=== PATIENT | male | born 1950 | race Caucasian/White ===

== ENCOUNTER 2016-07-05 19:23 | Emergency (ER) | payer OTHER, MEDICAID ==
[~2016-07-05] VITALS: Ht 165.1 cm; Wt 72.0 kg
[~2016-07-05 19:23] MED LIST: ASPI-110 PO; CINN500T PO; FURO1TAB62 PO; RANI150T PO
[2016-07-05 19:25] VITALS: BP 154/84; PULSE 75; RESP 16; TEMP 97.8; O2SAT 96
[2016-07-05] MEDS ORDERED: SODIUM CHLOR 0.9% 1000 ML INJ 1,000 ML IV SCH (21:35)
[2016-07-05 21:36] LABS: MEAN CORPUSCULAR HGB CONC 36.8 % (32.0-36.0)
[2016-07-05] MEDS ORDERED: CLOP75TA PO (21:38)
[2016-07-05] MEDS ORDERED: GLIP5TAB8 PO (21:38)
[2016-07-05] MEDS ORDERED: GEMF600 PO (21:38)
--- NOTE | 2016-07-05 21:41 | PD ---
HPI Chief Complaint: GI Complaint Time Seen by Provider: 21:28 Travel History International Travel<30 days: No Contact w/Intl Traveler<30days: No Traveled to known affect area: No History of Present Illness HPI Patient is a 65-year-old male with history of coronary artery disease, diabetes , GERD who presents to emergency room with complaints of abdominal pain. RepOrts that he has been having intermittent abdominal pain for the past few days, patient reports that today, pain was worse. Patient reports that he has increased pain to his right lower quadrant, reports that he has not been able to eat or drink anything secondary to pain. Patient denies any fevers or chills , reports that he did have a normal bowel today. Patient denies any chest pain or shortness of breath though he does admit to having 3 coronary artery stents placed by Dr.Ratten Espinal 3 weeks ago. PFSH Past Medical History Hx Anticoagulant Therapy: Yes (PLAVIX) Arthritis: No Asthma: No Autoimmune Disease: No Anxiety: No Depression: No Heart Rhythm Problems: No Cancer: No Cardiac Catheterization: Yes (JAN 2010) Cardiovascular Problems: Yes (STENT x3/TN) High Cholesterol: Yes Chemotherapy: No Chest Pain: Yes Congestive Heart Failure: Yes COPD: Yes Cerebrovascular Accident: Yes (CVAx3) Coronary Artery Disease: Yes Diabetes: Yes (GLIPIZIDE) Patient Takes Glucophage: Yes Diminished Hearing: No Endocrine: Yes Gastrointestinal Disorders: Yes (EGD AND COLONOSCOPY) GERD: Yes Genitourinary: No Headaches: Yes Hiatal Hernia: No Immune Disorder: No Kidney Stones: No Musculoskeletal: No Neurologic: No Psychiatric: No Reproductive: No Respiratory: Yes (COPD, BRONCHITIS) Immunizations Current: Yes Migraines: No Myocardial Infarction: Yes (2009) Pneumonia: Yes Radiation Therapy: No Renal Failure: No Seizures: No Sleep Apnea: No Thyroid Disease: No Ulcer: Yes (GASTRIC) Tetanus Vaccination: < 5 Years Influenza Vaccination: No Past Surgical History Abdominal Surgery: No AICD: No Arteriovenous Shunt: No Cardiac Surgery: Yes (HEART STENT 2009) Coronary Stent: Yes (X1) Ear Surgery: No Endocrine Surgery: No Eye Surgery: No Genitourinary Surgery: No Gynecologic Surgery: No Hysterectomy: No Insulin Pump: No Oral Surgery: Yes Pacemaker: No Thoracic Surgery: No Other Surgery: Yes Social History Alcohol Use: No Tobacco Use: No (QUIT Mar, USES E-CIG) Substance Use: No Allergies-Medications (Allergen,Severity, Reaction): Coded Allergies: Codeine (Verified Allergy, Severe, ITCHING/SWELLING, 07/05/16) Vicodin (Verified Allergy, Severe, ITCHING/SWELLING, 07/05/16) Reported Meds & Prescriptions Reported Meds & Active Scripts Active Protonix (Pantoprazole Sodium) 40 Mg Tab 40 Mg PO DAILY Zofran Odt (Ondansetron Odt) 4 Mg Tab 4 Mg SL Q6HR PRN Reported Lopid (Gemfibrozil) 600 Mg Tab 600 Mg PO BIDAC Take 30 minutes prior to breakfast and dinner Glipizide 5 Mg Tab 5 Mg PO DAILY Take 30 minutes before a meal Clopidogrel (Clopidogrel Bisulfate) 75 Mg Tab 75 Mg PO DAILY Ranitidine (Ranitidine HCl) 150 Mg Tab 150 Mg PO DAILY PRN Aspirin 81 (Aspirin) 81 Mg Tabdr 81 Mg PO HS Review of Systems General / Constitutional: No: Fever Eyes: No: Visual changes HENT: No: Headaches Cardiovascular: No: Chest Pain or Discomfort, Palpitations, Irregular Rhythm Respiratory: No: Shortness of Breath Gastrointestinal: Positive: Nausea, Vomiting, Abdominal Pain Genitourinary: No: Dysuria Musculoskeletal: No: Pain Skin: No Rash Neurologic: No: Weakness Psychiatric: No: Depression Endocrine: No: Polydipsia Hematologic/Lymphatic: No: Easy Bruising Physical Exam Narrative GENERAL: Mild distress SKIN: Warm and dry. HEAD: Atraumatic. Normocephalic. EYES: Pupils equal and round. No scleral icterus. No injection or drainage. ENT: No nasal bleeding or discharge. Mucous membranes pink and moist. NECK: Trachea midline. No JVD. CARDIOVASCULAR: Regular rate and rhythm. No murmur appreciated. RESPIRATORY: No accessory muscle use. Clear to auscultation. Breath sounds equal bilaterally. GASTROINTESTINAL: Abdomen soft, patient with increased right lower quadrant abdominal pain, patient with guarding on exam MUSCULOSKELETAL: No obvious deformities. No clubbing. No cyanosis. No edema. NEUROLOGICAL: Awake and alert. No obvious cranial nerve deficits. Motor grossly within normal limits. Normal speech. PSYCHIATRIC: Appropriate mood and affect; insight and judgment normal. Data Data Last Documented VS Vital Signs Date Time Temp Pulse Resp B/P Pulse Ox O2 Delivery O2 Flow Rate FiO2 07/06/16 00:00 16 07/05/16 22:10 62 139/87 96 Room Air 07/05/16 19:25 97.8 Orders Electrocardiogram (07/05/16 ) Complete Blood Count With Diff (07/05/16 21:35) Comprehensive Metabolic Panel (07/05/16 21:35) Lipase (07/05/16 21:35) Prothrombin Time / Inr (Pt) (07/05/16 21:35) Act Partial Throm Time (Ptt) (07/05/16 21:35) Urinalysis - C+S If Indicated (07/05/16 21:35) Iv Access Insert/Monitor (07/05/16 21:35) Ecg Monitoring (07/05/16 21:35) Oximetry (07/05/16 21:35) NPO (07/05/16 21:35) Morphine Inj (Morphine Inj) (07/05/16 21:45) Ondansetron Inj (Zofran Inj) (07/05/16 21:45) Sodium Chlor 0.9% 1000 Ml Inj (Ns 1000 M (07/05/16 21:35) Sodium Chloride 0.9% Flush (Ns Flush) (07/05/16 21:45) Chest, Single Ap (07/05/16 21:35) Famotidine Inj (Pepcid Inj) (07/05/16 21:45) Oral Contrast - Adult (07/05/16 21:43) Diatrizoate Liq ( Gastroadonis Liq) (07/05/16 22:13) Ct Abd/Pel W Iv Contrast(Rout) (07/06/16 ) Iohexol 350 Inj (Omnipaque 350 Inj) (07/05/16 23:59) Sodium Chlor 0.9% 1000 Ml Inj (Ns 1000 M (07/06/16 00:45) Insulin Human Regular Inj (Novolin R Inj (07/06/16 00:45) Bedside Glucose NESTOR.AC&HS (07/06/16 01:19) Labs Laboratory Tests Test 07/05/16 07/05/16 07/06/16 21:45 22:20 00:50 White Blood Count 6.3 TH/MM3 Red Blood Count 5.54 MIL/MM3 Hemoglobin 17.7 GM/DL Hematocrit 48.2 % Mean Corpuscular Volume 87.0 FL Mean Corpuscular Hemoglobin 32.0 PG Mean Corpuscular Hemoglobin 36.8 % Concent Red Cell Distribution Width 13.5 % Platelet Count 246 TH/MM3 Mean Platelet Volume 8.1 FL Neutrophils (%) (Auto) 49.6 % Lymphocytes (%) (Auto) 35.0 % Monocytes (%) (Auto) 8.6 % Eosinophils (%) (Auto) 4.5 % Basophils (%) (Auto) 2.3 % Neutrophils # (Auto) 3.1 TH/MM3 Lymphocytes # (Auto) 2.2 TH/MM3 Monocytes # (Auto) 0.5 TH/MM3 Eosinophils # (Auto) 0.3 TH/MM3 Basophils # (Auto) 0.1 TH/MM3 CBC Comment AUTO DIFF Differential Comment AUTO DIFF CONFIRMED Platelet Estimate NORMAL Platelet Morphology Comment NORMAL Prothrombin Time 10.2 SEC Prothromb Time International 0.9 RATIO Ratio Activated Partial 27.2 SEC Thromboplast Time Sodium Level 132 MEQ/L Potassium Level 4.9 MEQ/L Chloride Level 99 MEQ/L Carbon Dioxide Level 22.1 MEQ/L Anion Gap 11 MEQ/L Blood Urea Nitrogen 16 MG/DL Creatinine 0.86 MG/DL Estimat Glomerular Filtration 89 ML/MIN Rate Random Glucose 352 MG/DL Calcium Level 7.7 MG/DL Total Bilirubin 0.5 MG/DL Aspartate Amino Transf 60 U/L (AST/SGOT) Alanine Aminotransferase 43 U/L (ALT/SGPT) Alkaline Phosphatase 76 U/L Total Protein 7.0 GM/DL Albumin 3.4 GM/DL Lipase 227 U/L Urine Color LIGHT-YELLOW Urine Turbidity CLEAR Urine pH 5.0 Urine Specific [place] 1.030 Urine Protein NEG mg/dL Urine Glucose (UA) 1000 mg/dL Urine Ketones 40 mg/dL Urine Occult Blood NEG Urine Nitrite NEG Urine Bilirubin NEG Urine Urobilinogen LESS THAN 2.0 MG/DL Urine Leukocyte Esterase NEG Urine RBC LESS THAN 1 /hpf Urine WBC 1 /hpf Urine Mucus FEW /lpf Microscopic Urinalysis Comment CULT NOT INDICATED MDM Medical Decision Making Medical Screen Exam Complete: Yes Emergency Medical Condition: Yes Interpretation(s) EKG at 2243: NSR at 60bpm, qt/qtc: 398/399, no acute st or t wave changes Vital Signs Date Time Temp Pulse Resp B/P Pulse Ox O2 Delivery O2 Flow Rate FiO2 07/05/16 21:32 18 07/05/16 19:25 97.8 75 16 154/84 96 Room Air Laboratory Tests Test 07/05/16 07/05/16 21:45 22:20 White Blood Count 6.3 TH/MM3 (4.0-11.0) Red Blood Count 5.54 MIL/MM3 (4.50-5.90) Hemoglobin 17.7 GM/DL (13.0-17.0) Hematocrit 48.2 % (39.0-51.0) Mean Corpuscular Volume 87.0 FL (80.0-100.0) Mean Corpuscular Hemoglobin 32.0 PG (27.0-34.0) Mean Corpuscular Hemoglobin 36.8 % Concent (32.0-36.0) Red Cell Distribution Width 13.5 % (11.6-17.2) Platelet Count 246 TH/MM3 (150-450) Mean Platelet Volume 8.1 FL (7.0-11.0) Neutrophils (%) (Auto) 49.6 % (16.0-70.0) Lymphocytes (%) (Auto) 35.0 % (9.0-44.0) Monocytes (%) (Auto) 8.6 % (0.0-8.0) Eosinophils (%) (Auto) 4.5 % (0.0-4.0) Basophils (%) (Auto) 2.3 % (0.0-2.0) Neutrophils # (Auto) 3.1 TH/MM3 (1.8-7.7) Lymphocytes # (Auto) 2.2 TH/MM3 (1.0-4.8) Monocytes # (Auto) 0.5 TH/MM3 (0-0.9) Eosinophils # (Auto) 0.3 TH/MM3 (0-0.4) Basophils # (Auto) 0.1 TH/MM3 (0-0.2) CBC Comment AUTO DIFF Differential Comment AUTO DIFF CONFIRMED Platelet Estimate NORMAL (NORMAL) Platelet Morphology Comment NORMAL (NORMAL) Prothrombin Time 10.2 SEC (9.8-11.6) Prothromb Time International 0.9 RATIO Ratio Activated Partial 27.2 SEC Thromboplast Time (24.3-30.1) Sodium Level 132 MEQ/L (136-145) Potassium Level 4.9 MEQ/L (3.5-5.1) Chloride Level 99 MEQ/L (98-107) Carbon Dioxide Level 22.1 MEQ/L (21.0-32.0) Anion Gap 11 MEQ/L (5-15) Blood Urea Nitrogen 16 MG/DL (7-18) Creatinine 0.86 MG/DL (0.60-1.30) Estimat Glomerular Filtration 89 ML/MIN (>89) Rate Random Glucose 352 MG/DL (74-106) Calcium Level 7.7 MG/DL (8.5-10.1) Total Bilirubin 0.5 MG/DL (0.2-1.0) Aspartate Amino Transf 60 U/L (15-37) (AST/SGOT) Alanine Aminotransferase 43 U/L (12-78) (ALT/SGPT) Alkaline Phosphatase 76 U/L (45-117) Total Protein 7.0 GM/DL (6.4-8.2) Albumin 3.4 GM/DL (3.4-5.0) Lipase 227 U/L (73-393) Last Impressions Chest X-Ray 07/05/162134 Signed Impressions: Service Date/Time: Tuesday, July 05, 2016 21:40 - CONCLUSION: No acute cardiopulmonary disease. Brandee Umana MD Differential Diagnosis Acute cholecystitis, GERD, gastritis, acute appendicitis, electrolyte abnormality, ACS, arrythmia Narrative Course Patient is a 65-year-old male who presents to emergency room with complaints of abdominal pain. Patient reports the pain has been intermittent for the past few days, reports severe pain starting 1 PM today. Patient reports that he has increased pain to his right lower quadrant, reports that he does have an appendix and has never had any abdominal surgeries in the past. Vital Signs Date Time Temp Pulse Resp B/P Pulse Ox O2 Delivery O2 Flow Rate FiO2 07/05/16 21:32 18 07/05/16 19:25 97.8 75 16 154/84 96 Room Air Vital signs stable at this time. Plan to obtain labs as well as CAT scan of abdomen and pelvis to evaluate for acute appendicitis. X-ray of chest ordered to rule out free air. EKG ordered as patient did have a recent cardiac stent placed 3 weeks ago - rule out ACS wbc: 6.3 Hemoglobin 17.7 Hematocrit 48.2 Platelets 246 Sodium 132 Chloride 99 Potassium 4.9 BUN 16 Creatinine 0.86 Glucose 352 AST 60 ALT 43 T bili 0.5 Alkaline phosphatase 76 Lipase 227 Last Impressions Chest X-Ray 07/05/162134 Signed Impressions: Service Date/Time: Tuesday, July 05, 2016 21:40 - CONCLUSION: No acute cardiopulmonary disease. Brandee Umana MD CT abdomen pelvis: fatty liver, atherosclerosis, right upper pole renal cyst, no acute findings UA + glucose in urine Patient reevaluated, patient reports that he is doing much better. BS 220 Signs and symptoms of when to return to the emergency room was reviewed with patient and his in detail. Understands need for follow-up within 8-12 hours, he will return to emergency room should he develop worsening symptoms or progression of symptoms Diagnosis Primary Impression: Abdominal pain Qualified Code: R10.31 - Right lower quadrant abdominal pain Additional Impressions: Hyperglycemia GERD (gastroesophageal reflux disease) Patient Instructions: General Instructions Additional Instructions: Please provide patient with a copy of his lab work and studies at discharge Please follow up with your primary care doctor Return to ER as needed Return to ER immediately if you develop fevers or chills or return of symptoms Please bring your lab work as well as your studies to doctor's office for earliest follow-up Please call your observer gravity prospecting for earliest follow-up as you will need further testing including but not limited to EGD Scripts Pantoprazole (Protonix)40 Mg Tab40 Mg PO DAILY #30 TAB Ref 0 Prov:Celi Mendez DO 07/06/16 Ondansetron Odt (Zofran Odt)4 Mg Tab4 Mg SL Q6HR PRN (Nausea/Vomiting) #30 TAB Ref 0 Prov:Celi Mendez DO 07/06/16 Disposition: 01 DISCHARGE HOME Condition: Stable Celi Mendez DO Jul 05, 2016 21:41
[2016-07-05] MEDS ORDERED: SODIUM CHLORIDE 0.9% FLUSH 10 ML FLUSH IV FLUSH PRN (21:45)
[2016-07-05] MEDS ORDERED: ONDANSETRON HCL 4 MG/2 ML VIAL IVP ONE (21:45)
[2016-07-05] MEDS ORDERED: FAMOTIDINE 20 MG/2 ML VIAL IV PUSH ONE (21:45)
[2016-07-05] MEDS ORDERED: MORPHINE SULFATE 4 MG/ML INJ IV PUSH ONE (21:45)
[2016-07-05 22:02] LABS: AUTOMATED NEUTROPHIL # 3.1 TH/MM3 (1.8-7.7); BASOPHIL # 0.1 TH/MM3 (0-0.2); BASOPHIL % 2.3 % (0.0-2.0); EOSINOPHIL # 0.3 TH/MM3 (0-0.4); EOSINOPHIL % 4.5 % (0.0-4.0); HEMATOCRIT 48.2 % (39.0-51.0); LYMPHOCYTE # 2.2 TH/MM3 (1.0-4.8); MONO % 8.6 % (0.0-8.0); NEUT % 49.6 % (16.0-70.0); PLATELET COUNT 246 TH/MM3 (150-450); RED BLOOD COUNT 5.54 MIL/MM3 (4.50-5.90); RED CELL DISTRIBUTION WIDTH 13.5 % (11.6-17.2); WHITE BLOOD COUNT 6.3 TH/MM3 (4.0-11.0)
[2016-07-05 22:04] LABS: HEMO FLAGS AUTO DIFF
[2016-07-05 22:09] VITALS: RESP 18; O2SAT 96
[2016-07-05 22:10] VITALS: BP 139/87; PULSE 62; RESP 18; O2SAT 96
[2016-07-05] MEDS ORDERED: DIATRIZOATE MEGLUM/DIATRIZOATE SOD 9 ML CUP ONE (22:13)
--- NOTE | 2016-07-05 22:13 | RADRPT ---
EXAM DATE/TIME: 07/05/2016 21:40 [facility] COMPARISON: CHEST SINGLE AP, April 02, 2016, 21:59. INDICATIONS : Epigastric pain. MEDICAL HISTORY : Diabetes mellitus type II. SURGICAL HISTORY : None. ENCOUNTER: Initial ACUITY: 2 days PAIN SCORE: 10/10 LOCATION: upper quadrant abdomen FINDINGS: The lungs are clear without infiltrate, nodule, or mass. There is no appreciable pleural effusion fo r technique. Heart and mediastinum are unremarkable. CONCLUSION: No acute cardiopulmonary disease. Brandee Umana MD on July 05, 2016 at 22:11 Board Certified Radiologist. This report was verified electronically.
[2016-07-05 22:41] LABS: PLATELET ESTIMATE SMEAR NORMAL (NORMAL); PLATELET MORPHOLOGY NORMAL (NORMAL); SCAN/DIFF AUTO DIFF CONFIRMED
[2016-07-05 22:43] LABS: APTT (PATIENT) 27.2 SEC (24.3-30.1); INTERNATIONAL NORMALIZED RATIO 0.9 RATIO; PROTHROMBIN TIME - PATIENT 10.2 SEC (9.8-11.6)
[2016-07-05 23:18] LABS: ALKALINE PHOSPHATASE 76 U/L (45-117); ANION GAP 11 MEQ/L (5-15); BICARBONATE 22.1 MEQ/L (21.0-32.0); CHLORIDE 99 MEQ/L (98-107); GLOMERULAR FILTRATION RATE 89 ML/MIN (>89); SODIUM (NA) 132 MEQ/L (136-145); TOTAL BILIRUBIN ADULT 0.5 MG/DL (0.2-1.0)
[2016-07-05 23:24] LABS: ALT (GPT) 43 U/L (12-78); AST (GOT) 60 U/L (15-37); BLOOD UREA NITROGEN 16 MG/DL (7-18); POTASSIUM 4.9 MEQ/L (3.5-5.1)
[2016-07-05] MEDS ORDERED: IOHEXOL 350 MG/ML 10 ML VIAL (for RAD DIAG) IV ONE (23:59)
[2016-07-06] VITALS: RESP 16
--- NOTE | 2016-07-06 00:37 | RADRPT ---
EXAM DATE/TIME: 07/06/2016 00:16 [facility] COMPARISON: CT ABDOMEN & PELVIS W CONTRAST, November 26, 2015, 20:58. INDICATIONS : Abdomen pain. IV CONTRAST: 100 cc Omnipaque 350 (iohexol) IV ORAL CONTRAST: Prescribed oral contrast ingested. RADIATION DOSE: 5.14 CTDIvol (mGy) MEDICAL HISTORY : Cardiovascular disease. SURGICAL HISTORY : Cardiac stents. ENCOUNTER: Initial ACUITY: 1 day PAIN SCALE: 4/10 LOCATION: Bilateral abdomen. TECHNIQUE: Volumetric scanning of the abdomen and pelvis was performed. Using automated exposure control and ad justment of the mA and/or kV according to patient size, radiation dose was kept as low as reasonably achievable to obtain optimal diagnostic quality images. FINDINGS: Fatty liver is noted. Gallbladder, kidneys, adrenal glands and spleen, pancreas unremarkable. Small c yst upper pole right kidney identified. No evidence of bowel obstruction. Appendix normal. Urinary bl adder is normal. Prostatic calcifications are noted. A few scattered diverticuli without evidence of diverticulitis or colitis. The there is atherosclerotic plaquing of the aorta and iliac vessels witho ut evidence for aneurysm. There are mild degenerative changes of the spine noted. Lung bases are katie r. CONCLUSION: 1. Fatty liver. 2. Atherosclerosis. 3. Right upper pole renal cyst. 4. No acute findings. Sy Gutierrez MD on July 06, 2016 at 0:34 Board Certified Radiologist. This report was verified electronically.
[2016-07-06] MEDS ORDERED: SODIUM CHLOR 0.9% 1000 ML INJ 1,000 ML IV ONE (00:45)
[2016-07-06] MEDS ORDERED: INSULIN HUMAN REGULAR 1,000 UNITS/10 ML VIAL SQ ONE (00:45)
[2016-07-06 01:18] LABS: BLOOD, URINE NEG (NEG); COMMENT (UR) CULT NOT INDICATED; CULTURE IF INDICATED CULT NOT INDICATED; GLUCOSE,URINE 1000 mg/dL (NEG); KETONE, URINE 40 mg/dL (NEG); MUCUS URINE FEW /lpf (OCC); NITRITE,URINE NEG (NEG); URINE COLOR LIGHT-YELLOW (YELLW/STRAW)
[2016-07-06] MEDS ORDERED: ZOFR4TAB3 SL (01:29)
[2016-07-06] MEDS ORDERED: PROT40TA PO (01:33)
--- NOTE | 2016-07-06 20:08 | EKG ---
Date Performed: 07/05/2016 Time Performed: 22:43:50 PTAGE: 65 years EKG: Sinus rhythm When compared to previous tracing, sinus rate has increased. NORMAL ECG PREVIOUS TRACING : 04/02/2016 21.23 DOCTOR: David Olivares Interpretating Date/Time 07/06/2016 20:07:14
== END 2016-07-06 02:01 | disposition home or self-care (01) ==
LOC: NEPA 19:23
DX: R10.31 Right lower quadrant pain (principal); I50.9 Heart failure, unspecified; I25.10 Atherosclerotic heart disease of native coronary artery without angina pectoris; E11.65 Type 2 diabetes mellitus with hyperglycemia; I25.2 Old myocardial infarction; K21.9 Gastro-esophageal reflux disease without esophagitis; Z95.5 Presence of coronary angioplasty implant and graft; Z79.01 Long term (current) use of anticoagulants; Z79.84 Long term (current) use of oral hypoglycemic drugs; Z79.4 Long term (current) use of insulin
CPT/HCPCS: 71010; 74177; 80053; 81001; 83690; 85025; 85610; 85730; 93005; 96361; 96374; 96375; 99284; J1815; J2270; J2405; J7030; Q9963; Q9967

== ENCOUNTER 2016-08-03 20:09 | Emergency (ER) | payer OTHER, MEDICAID ==
[~2016-08-03] VITALS: Ht 165.1 cm; Wt 75.0 kg
[~2016-08-03 20:09] MED LIST changes: -CINN500T PO; +CLOP75TA PO; -FURO1TAB62 PO; +GEMF600 PO; +GLIP5TAB8 PO; +PROT40TA PO; +ZOFR4TAB3 SL
[2016-08-03 20:29] VITALS: BP 152/77; PULSE 60; RESP 16; TEMP 98.2; O2SAT 96
[2016-08-03] MEDS ORDERED: SODIUM CHLORIDE 0.9% FLUSH 10 ML FLUSH IVF PRN (20:45)
[2016-08-03] MEDS ORDERED: ASPIRIN 81 MG CHEW TAB PO ONE (20:45)
[2016-08-03] MEDS ORDERED: NITROGLYCERIN 0.4 MG SL 25 TABS/BTL SL ONE (20:45)
--- NOTE | 2016-08-03 20:48 | PD ---
HPI Chief Complaint: Chest Pain Time Seen by Provider: 20:37 Travel History International Travel<30 days: No Contact w/Intl Traveler<30days: No Traveled to known affect area: No History of Present Illness HPI 65-year-old male presents to the emergency department for complaint of left- sided 5-6/10 in intensity chest pain, shortness of breath, with associated mild sweats no nausea no referred neck jaw back shoulder arm pain. Patient also complains of left lower extremity pain, he describes as a "sore". Patient states yesterday at [facility] he had a left external iliac everflex stent placed for PAD and 06/05/16 had a multi-link mini- vision 2 mm x 23 mm stent placed in the distal RCA. Patient states had previous stent in 2009. Patient states that he has done well post procedure until today after taking his first dose of Brilinta approximately 2 hours later he reports that he started noticing chest discomfort and then subsequently left lower extremity pain. Patient states he was finally contacted his adjunct spanish instructor Dr. Hawkins who encouraged him to come to the emergency department to be evaluated. His adjunct spanish instructor told him to stop the Brilinta and resume taking his Plavix. Patient has taken no medications for his chest pain. Patient does not report any claudication. Patient has history of previous CAD, [place], cardiac catheterization with stent, PAD, recent stenting of the external iliac vessel, COPD, diabetes, episode of CHF, hypertension, dyslipidemia, CVA, GERD with EGD and colonoscopy, pneumonia, peptic ulcer disease, and no tobacco use since 2015. Patient is unable to identify exacerbating or alleviating factors. PFSH Past Medical History Narrative Medical CAD, [place], cardiac catheterization with stent, PAD, recent stenting of the external iliac vessel, COPD, diabetes, episode of CHF, hypertension, dyslipidemia, CVA, GERD with EGD and colonoscopy, pneumonia, peptic ulcer disease, and no tobacco use since 03/2016; nursing notes and medical records reviewed. Hx Anticoagulant Therapy: Yes (PLAVIX) Arthritis: No Asthma: No Autoimmune Disease: No Anxiety: No Depression: No Heart Rhythm Problems: No Cancer: No Cardiac Catheterization: Yes (JAN 2010) Cardiovascular Problems: Yes (STENT x3/[place]) High Cholesterol: Yes Chemotherapy: No Chest Pain: Yes Congestive Heart Failure: Yes COPD: Yes Cerebrovascular Accident: Yes (CVAx3) Coronary Artery Disease: Yes Diabetes: Yes (GLIPIZIDE) Diminished Hearing: No Endocrine: Yes Gastrointestinal Disorders: Yes (EGD AND COLONOSCOPY) GERD: Yes Genitourinary: No Headaches: Yes Hiatal Hernia: No Immune Disorder: No Kidney Stones: No Musculoskeletal: No Neurologic: No Psychiatric: No Reproductive: No Respiratory: Yes (COPD, BRONCHITIS) Immunizations Current: Yes Migraines: No Myocardial Infarction: Yes (2009) Pneumonia: Yes Radiation Therapy: No Renal Failure: No Seizures: No Sleep Apnea: No Thyroid Disease: No Ulcer: Yes (GASTRIC) ?: Not Past Surgical History Abdominal Surgery: No AICD: No Arteriovenous Shunt: No Cardiac Surgery: Yes (HEART STENT 2009) Coronary Stent: Yes (X1) Ear Surgery: No Endocrine Surgery: No Eye Surgery: No Genitourinary Surgery: No Gynecologic Surgery: No Hysterectomy: No Insulin Pump: No Oral Surgery: Yes Pacemaker: No Thoracic Surgery: No Other Surgery: Yes Social History Alcohol Use: No Tobacco Use: No (QUIT Mar, USES E-CIG) Substance Use: No Allergies-Medications (Allergen,Severity, Reaction): Coded Allergies: Codeine (Verified Allergy, Severe, ITCHING/SWELLING, 08/03/16) Vicodin (Verified Allergy, Severe, ITCHING/SWELLING, 08/03/16) Reported Meds & Prescriptions Reported Meds & Active Scripts Active Protonix (Pantoprazole Sodium) 40 Mg Tab 40 Mg PO DAILY Reported Brilinta (Ticagrelor) 90 Mg Tab 90 Mg PO BID Glipizide 5 Mg Tab 5 Mg PO DAILY Take 30 minutes before a meal Aspirin 81 (Aspirin) 81 Mg Tabdr 81 Mg PO HS Review of Systems Except as stated in HPI: all other systems reviewed are Neg General / Constitutional: No: Fever, Chills HENT: No: Congestion Cardiovascular: Positive: Chest Pain or Discomfort, Diaphoresis, No: Palpitations, Irregular Rhythm, Tachycardia, Syncope, Dyspnea on exertion, Edema , Claudication Respiratory: Positive: Shortness of Breath, No: Cough, Orthopnea, Hemoptysis, Pleuritic Pain Gastrointestinal: Positive: Nausea, No: Vomiting, Diarrhea, Abdominal Pain Musculoskeletal: No: Myalgias, Arthralgias, Cramping, Edema, Pain ("sore") Skin: No Rash Neurologic: No: Weakness Psychiatric: No: Anxiety Hematologic/Lymphatic: No: Easy Bruising Physical Exam Narrative GENERAL: Well-developed well-nourished male in no acute distress no respiratory distress. SKIN: Warm and dry. HEAD: Normocephalic. EYES: No scleral icterus. No injection or drainage. NECK: Supple, trachea midline. No JVD or lymphadenopathy. CARDIOVASCULAR: Regular rate and rhythm without murmurs, gallops, or rubs. RESPIRATORY: Breath sounds equal bilaterally. No accessory muscle use. GASTROINTESTINAL: Abdomen soft, non-tender, nondistended. MUSCULOSKELETAL: No cyanosis, or edema. Radial and dorsalis pedis pulses 2+ to palpation bilaterally. Bilateral lower extremities no redness no swelling no pallor no coolness; right groin no induration no edema ecchymosis no drainage nontender. BACK: Nontender without obvious deformity. No CVA tenderness. Data Data Last Documented VS Vital Signs Date Time Temp Pulse Resp B/P Pulse Ox O2 Delivery O2 Flow Rate FiO2 08/03/16 21:49 62 16 132/77 98 Nasal Cannula 2 08/03/16 20:29 98.2 Orders Electrocardiogram (08/03/16 20:38) Basic Metabolic Panel (Bmp) (08/03/16 20:38) B-Type Natriuretic Peptide (08/03/16 20:38) Ckmb (Isoenzyme) Profile (08/03/16 20:38) Complete Blood Count With Diff (08/03/16 20:38) Magnesium (Mg) (08/03/16 20:38) Prothrombin Time / Inr (Pt) (08/03/16 20:38) Act Partial Throm Time (Ptt) (08/03/16 20:38) Troponin I (08/03/16 20:38) Chest, Single Ap (08/03/16 20:38) Ecg Monitoring (08/03/16 20:38) Bilateral Bp Monitoring (08/03/16 20:38) Iv Access Insert/Monitor (08/03/16 20:38) Oximetry (08/03/16 20:38) Oxygen Administration (08/03/16 20:38) Aspirin Chew (Aspirin Chew) (08/03/16 20:45) Sodium Chloride 0.9% Flush (Ns Flush) (08/03/16 20:45) Nitroglycerin Sl (Nitrostat Sl) (08/03/16 20:45) Sodium Chlor 0.9% 1000 Ml Inj (Ns 1000 M (08/03/16 20:45) Insulin Human Regular Inj (Novolin R Inj (08/03/16 22:00) Sodium Chlorid 0.9% 500 Ml Inj (Ns 500 M (08/03/16 22:00) Insulin Human Regular Inj (Novolin R Inj (08/03/16 22:15) Labs Laboratory Tests Test 08/03/16 20:30 White Blood Count 5.6 TH/MM3 Red Blood Count 4.87 MIL/MM3 Hemoglobin 15.2 GM/DL Hematocrit 42.4 % Mean Corpuscular Volume 87.1 FL Mean Corpuscular Hemoglobin 31.3 PG Mean Corpuscular Hemoglobin 35.9 % Concent Red Cell Distribution Width 12.7 % Platelet Count 248 TH/MM3 Mean Platelet Volume 7.3 FL Neutrophils (%) (Auto) 58.2 % Lymphocytes (%) (Auto) 29.4 % Monocytes (%) (Auto) 9.1 % Eosinophils (%) (Auto) 2.6 % Basophils (%) (Auto) 0.7 % Neutrophils # (Auto) 3.3 TH/MM3 Lymphocytes # (Auto) 1.7 TH/MM3 Monocytes # (Auto) 0.5 TH/MM3 Eosinophils # (Auto) 0.1 TH/MM3 Basophils # (Auto) 0.0 TH/MM3 CBC Comment DIFF FINAL Differential Comment Prothrombin Time 10.5 SEC Prothromb Time International 1.0 RATIO Ratio Activated Partial 28.0 SEC Thromboplast Time Sodium Level 137 MEQ/L Potassium Level 3.9 MEQ/L Chloride Level 102 MEQ/L Carbon Dioxide Level 26.5 MEQ/L Anion Gap 9 MEQ/L Blood Urea Nitrogen 9 MG/DL Creatinine 0.92 MG/DL Estimat Glomerular Filtration 83 ML/MIN Rate Random Glucose 362 MG/DL Calcium Level 8.3 MG/DL Magnesium Level 2.1 MG/DL Total Creatine Kinase 46 U/L Troponin I LESS THAN 0.02 NG/ML B-Type Natriuretic Peptide 9 PG/ML MDM Medical Decision Making Medical Screen Exam Complete: Yes Emergency Medical Condition: Yes Medical Record Reviewed: Yes Interpretation(s) EKG: Sinus bradycardia rate 55 age-indeterminate inferior infarct no acute ST elevation or injury pattern change noted EKG compared to 04/13/15 and unchanged Differential Diagnosis Chest pain, ACS, myocardial infarction, PE, limb ischemia, DVT, pseudoaneurysm, dissection Narrative Course Patient placed on cardiac rehabilitation specialist IV access obtained specimens collected and sent for resulting EKG had been performed which showed sinus bradycardia with Q waves inferiorly with no acute ST elevation or injury pattern change noted; this is compared to previous EKGs that identified same age-indeterminate inferior infarct @ 21:50 pain free 0/10 chest and 0/10 LLE "that was just sore"; repeat exam lung sounds remain clear, cor regular rate and rhythm no murmurs, radial dorsalis pedis pulses 2++= bilaterally; CK: 46, troponin I less than 0.02, not elevated; serum glucose elevated at 362, patient given bolus of NS and SQ regular insulin 6 units; plan to admit patient to medicine for serial enzymes call placed to cardiology --appears stable for HHPO, patient's adjunct spanish instructor does not practice at this facility. Call placed to [facility] cardiology and [facility] service. Patient refuses to stay for admission discussed in detail risk of cardiac ischemia and injury and ---patient states he feels fine and will follow up with his adjunct spanish instructor as an outpatient. Calls to cardiology and [facility] service cancelled. AMA: The risks of leaving against medical advice without further evaluation treatment were discussed with the patient. These risks include cardiac dysfunction, cardiac dysrhythmia, possible heart attack, possible stroke or . The patient indicated understanding of these risks and appeared to have the capacity to make this decision. Critical Care Narrative Aggregate critical care time was 35 minutes. Time to perform other separately billable procedures was not included in the critical care time. My time did not include minutes spent treating any other patients simultaneously or on activities that did not directly contribute to the patient's treatment. The services I provided to this patient were to treat and/or prevent clinically significant deterioration that could result in: FL, arrhythmia, I provided critical care services requiring my management, as noted below: Chart data review, documentation time, medication orders and management, vital sign assessments/reviewing monitor data, ordering and reviewing lab tests, ordering and interpreting/reviewing x-rays and diagnostic studies, care of the patient and discussion of the patient with the admitting physicians. Physician Communication Physician Communication call placed to Dr Esthela lewis Diagnosis Primary Impression: Chest pain Qualified Code: R07.2 - Precordial pain Additional Impressions: Peripheral artery disease Diabetes mellitus type 2, uncontrolled Additional Instructions: AMA Disposition: AGAINST MEDICAL ADVICE Condition: Olinda Quigley MD Aug 03, 2016 20:48
[2016-08-03 20:49] LABS: AUTOMATED NEUTROPHIL # 3.3 TH/MM3 (1.8-7.7); BASOPHIL % 0.7 % (0.0-2.0); EOSINOPHIL # 0.1 TH/MM3 (0-0.4); EOSINOPHIL % 2.6 % (0.0-4.0); HEMATOCRIT 42.4 % (39.0-51.0); LYMPH % 29.4 % (9.0-44.0); LYMPHOCYTE # 1.7 TH/MM3 (1.0-4.8); MEAN CELL VOLUME 87.1 FL (80.0-100.0); MEAN CORPUSCULAR HEMOGLOBIN 31.3 PG (27.0-34.0); MEAN CORPUSCULAR HGB CONC 35.9 % (32.0-36.0); MONO % 9.1 % (0.0-8.0); NEUT % 58.2 % (16.0-70.0); PLATELET COUNT 248 TH/MM3 (150-450); RED BLOOD COUNT 4.87 MIL/MM3 (4.50-5.90); RED CELL DISTRIBUTION WIDTH 12.7 % (11.6-17.2); WHITE BLOOD COUNT 5.6 TH/MM3 (4.0-11.0)
[2016-08-03 20:50] LABS: HEMO FLAGS DIFF FINAL
[2016-08-03 20:59] LABS: CHLORIDE 102 MEQ/L (98-107); POTASSIUM 3.9 MEQ/L (3.5-5.1); SODIUM (NA) 137 MEQ/L (136-145)
[2016-08-03 21:02] LABS: ANION GAP 9 MEQ/L (5-15); BICARBONATE 26.5 MEQ/L (21.0-32.0); MAGNESIUM 2.1 MG/DL (1.5-2.5)
[2016-08-03] MEDS: SODIUM CHLOR 0.9% 1000 ML INJ 1,000 ML IV SCH ×2 (21:03→22:20)
[2016-08-03 21:04] LABS: PROTHROMBIN TIME - PATIENT 10.5 SEC (9.8-11.6)
[2016-08-03 21:05] VITALS: BP 138/74; PULSE 57; RESP 16; O2SAT 97
[2016-08-03 21:05] LABS: GLOMERULAR FILTRATION RATE 83 ML/MIN (>89)
[2016-08-03 21:13] VITALS: BP 139/67; PULSE 58; RESP 16
[2016-08-03 21:14] LABS: BLOOD UREA NITROGEN 9 MG/DL (7-18); CREATINE KINASE 46 U/L (39-308)
[2016-08-03] MEDS ORDERED: BRIL90TA PO (21:23)
--- NOTE | 2016-08-03 21:27 | RADHPO ---
EXAM DATE/TIME: 08/03/2016 20:47 [facility] COMPARISON: No previous studies available for comparison. INDICATIONS : Chest pain and shortness of breath. MEDICAL HISTORY : Myocardial infarction. Chronic obstructive pulmonary disease. Diabetes mellitus type II. CVA. CHF . SURGICAL HISTORY : Cardiac cath. Coronary stent. ENCOUNTER: Initial ACUITY: 1 day PAIN SCORE: 5/10 LOCATION: Bilateral chest FINDINGS: The lungs are clear without infiltrate, nodule, or mass. There is no appreciable pleural effusion fo r technique. Heart and mediastinum are unremarkable. CONCLUSION: No acute cardiopulmonary disease. Brandee Umana MD on August 03, 2016 at 21:25 Board Certified Radiologist. This report was verified electronically.
[2016-08-03 21:49] VITALS: BP 132/77; PULSE 62; RESP 16; O2SAT 98
[2016-08-03] MEDS ORDERED: SODIUM CHLORID 0.9% 500 ML INJ 500 ML IV ONE (22:00)
[2016-08-03] MEDS ORDERED: INSULIN HUMAN REGULAR 1,000 UNITS/10 ML VIAL SQ ONE ×2 (22:00→22:15)
[2016-08-03 22:31] VITALS: BP 135/72; PULSE 66; RESP 16; O2SAT 98
--- NOTE | 2016-08-04 18:54 | EKG ---
Date Performed: 08/03/2016 Time Performed: 20:32:30 PTAGE: 65 years EKG: Sinus bradycardia Inferior infarct - age undetermined Abnormal ECG Compared to prior tracin g no significant change PREVIOUS TRACING :07/05/2016 @ 22.43 DOCTOR: Owen Hickman Interpretating Date/Time 08/04/2016 18:55:51
== END 2016-08-03 22:39 | disposition left against medical advice (07) ==
LOC: PHED 20:09
DX: R07.9 Chest pain, unspecified (principal); I73.9 Peripheral vascular disease, unspecified; E11.65 Type 2 diabetes mellitus with hyperglycemia; M79.605 Pain in left leg; R00.1 Bradycardia, unspecified; E78.5 Hyperlipidemia, unspecified; K21.9 Gastro-esophageal reflux disease without esophagitis; J44.9 Chronic obstructive pulmonary disease, unspecified; I25.10 Atherosclerotic heart disease of native coronary artery without angina pectoris; I10 Essential (primary) hypertension; I50.9 Heart failure, unspecified; E78.00 Pure hypercholesterolemia, unspecified; Z95.5 Presence of coronary angioplasty implant and graft; Z79.01 Long term (current) use of anticoagulants; Z86.73 Personal history of transient ischemic attack (TIA), and cerebral infarction without residual deficits; Z87.891 Personal history of nicotine dependence
CPT/HCPCS: 71010; 80048; 82550; 83735; 83880; 84484; 85025; 85610; 85730; 93005; 96360; 99291; J7030

== ENCOUNTER 2016-10-03 19:39 | Emergency (ER) | payer OTHER, MEDICAID ==
[~2016-10-03] VITALS: Ht 165.1 cm; Wt 74.7 kg
[~2016-10-03 19:39] MED LIST changes: +BRIL90TA PO; -CLOP75TA PO; -GEMF600 PO; -RANI150T PO; -ZOFR4TAB3 SL
[2016-10-03 19:40] VITALS: BP 134/76; PULSE 67; RESP 18; TEMP 98.2; O2SAT 96
[2016-10-03 19:45] VITALS: RESP 18; O2SAT 96
[2016-10-03] MEDS ORDERED: PLAV75TA29 PO (20:06)
--- NOTE | 2016-10-03 20:10 | PD ---
HPI Chief Complaint: chest pain Time Seen by Provider: 20:02 Travel History International Travel<30 days: No Contact w/Intl Traveler<30days: No Traveled to known affect area: No History of Present Illness HPI 65-year-old male presents to the emergency department by private transportation for complaint of intermittent chest pain and shortness of breath. Patient reports since 1 PM today he has had intermittent episodes of 3-4 minutes of duration left-sided chest tightness. Discomfort is nonradiating. Recently he has experienced some shortness of breath. Just prior to arrival to the emergency department he noticed some dizziness and decided because of the dizziness chest discomfort and shortness of breath he should come to the emergency room to be evaluated. Patient has history of CAD with prior myocardial infarction CVA without residua PAD with prior stenting hypertension and dyslipidemia. Patient is also diabetic. Patient denies tobacco use, since 03/2016. Patient's public relations analyst is Dr. Hawkins and [place]. Patient states that he did take his daily aspirin this morning but has not taken any further aspirin and no medications for his discomfort. Patient states that he is also supposed to take Plavix daily but has been off Plavix this week in anticipation of undergoing esophageal dilatation the endoscopy on Sunday with his bobbin handler Dr. Goldman. Patient did not contact his primary care provider regarding his symptoms or his public relations analyst. Patient states that discomfort when present is 5/10 in intensity but presently is 0/10 in intensity. Patient does note that his shortness of breath seems to worsen when he rests supine and seems less severe when he is sitting upright. Patient is not reporting lower extremity pain or swelling. No recent protracted bedrest long distance travel or surgical procedure. PFSH Past Medical History Narrative Medical CAD, [place], cardiac catheterization with stent, PAD with stent, COPD, diabetes, CHF , hypertension, dyslipidemia, CVA, GERD, esophageal stricture, EGD, colonoscopy , peptic ulcer disease, pneumonia, and prior history of tobacco use; nursing notes reviewed Hx Anticoagulant Therapy: Yes (PLAVIX) Arthritis: No Asthma: No Autoimmune Disease: No Anxiety: No Depression: No Heart Rhythm Problems: No Cancer: No Cardiac Catheterization: Yes (JAN 2010) Cardiovascular Problems: Yes (STENT x3/[place]) High Cholesterol: Yes Chemotherapy: No Chest Pain: Yes Congestive Heart Failure: Yes COPD: Yes Cerebrovascular Accident: Yes (CVAx3) Coronary Artery Disease: Yes Diabetes: Yes (GLIPIZIDE) Diminished Hearing: No Endocrine: Yes Gastrointestinal Disorders: Yes (EGD AND COLONOSCOPY) GERD: Yes Genitourinary: No Headaches: Yes Hiatal Hernia: No Hypertension: No Immune Disorder: No Implanted Vascular Access Dvce: No Kidney Stones: No Musculoskeletal: No Neurologic: No Psychiatric: No Reproductive: No Respiratory: Yes (COPD, BRONCHITIS) Immunizations Current: Yes Migraines: No Myocardial Infarction: Yes (2009) Pneumonia: Yes Radiation Therapy: No Renal Failure: No Seizures: No Sleep Apnea: No Thyroid Disease: No Ulcer: Yes (GASTRIC) Past Surgical History Abdominal Surgery: No AICD: No Arteriovenous Shunt: No Cardiac Surgery: Yes (HEART STENT 2009) Coronary Stent: Yes (X1) Ear Surgery: No Endocrine Surgery: No Eye Surgery: No Genitourinary Surgery: No Gynecologic Surgery: No Hysterectomy: No Insulin Pump: No Neurologic Surgery: No Oral Surgery: Yes Pacemaker: No Thoracic Surgery: No Other Surgery: Yes Social History Alcohol Use: No Tobacco Use: No (QUIT Mar, USES E-CIG) Substance Use: No Allergies-Medications (Allergen,Severity, Reaction): Coded Allergies: Brilinta (Verified Allergy, Severe, VOMITING, CRAMPS, 10/03/16) Codeine (Verified Allergy, Severe, ITCHING/SWELLING, 08/03/16) Vicodin (Verified Allergy, Severe, ITCHING/SWELLING, 08/03/16) Reported Meds & Prescriptions Reported Meds & Active Scripts Active Protonix (Pantoprazole Sodium) 40 Mg Tab 40 Mg PO DAILY Reported Plavix (Clopidogrel Bisulfate) 75 Mg Tab 75 Mg PO DAILY Glipizide 5 Mg Tab 5 Mg PO DAILY Take 30 minutes before a meal Aspirin 81 (Aspirin) 81 Mg Tabdr 81 Mg PO HS Review of Systems Except as stated in HPI: all other systems reviewed are Neg General / Constitutional: No: Fever, Chills HENT: No: Congestion Cardiovascular: Positive: Chest Pain or Discomfort, No: Diaphoresis, Dyspnea on exertion Respiratory: Positive: Shortness of Breath, Orthopnea, No: Pleuritic Pain Gastrointestinal: No: Nausea, Vomiting, Abdominal Pain Genitourinary: No: Flank Pain Musculoskeletal: No: Myalgias, Arthralgias Skin: No Rash Neurologic: No: Weakness Psychiatric: No: Anxiety Endocrine: No: Heat Intolerance Hematologic/Lymphatic: No: Easy Bruising Physical Exam Narrative GENERAL: Well-developed well-nourished male in no acute distress no respiratory distress. SKIN: Warm and dry. HEAD: Normocephalic. EYES: No scleral icterus. No injection or drainage. NECK: Supple, trachea midline. No JVD or lymphadenopathy. CARDIOVASCULAR: Regular rate and rhythm without murmurs, gallops, or rubs. RESPIRATORY: Breath sounds equal bilaterally. No accessory muscle use. GASTROINTESTINAL: Abdomen soft, non-tender, nondistended. MUSCULOSKELETAL: No cyanosis, or edema. BACK: Nontender without obvious deformity. No CVA tenderness. Data Data Last Documented VS Vital Signs Date Time Temp Pulse Resp B/P Pulse Ox O2 Delivery O2 Flow Rate FiO2 10/03/16 20:15 68 18 139/67 98 Room Air 135/67 10/03/16 19:40 98.2 Orders Electrocardiogram (10/03/16 20:02) Basic Metabolic Panel (Bmp) (10/03/16 20:02) B-Type Natriuretic Peptide (10/03/16 20:02) Ckmb (Isoenzyme) Profile (10/03/16 20:02) Complete Blood Count With Diff (10/03/16 20:02) Magnesium (Mg) (10/03/16 20:02) Prothrombin Time / Inr (Pt) (10/03/16 20:02) Act Partial Throm Time (Ptt) (10/03/16 20:02) Troponin I (10/03/16 20:02) Chest, Single Ap (10/03/16 20:02) Ecg Monitoring (10/03/16 20:02) Bilateral Bp Monitoring (10/03/16 20:02) Iv Access Insert/Monitor (10/03/16 20:02) Oximetry (10/03/16 20:02) Oxygen Administration (10/03/16 20:02) Aspirin Chew (Aspirin Chew) (10/03/16 20:15) Sodium Chloride 0.9% Flush (Ns Flush) (10/03/16 20:15) Labs Laboratory Tests Test 10/03/16 19:55 White Blood Count 5.8 TH/MM3 Red Blood Count 5.07 MIL/MM3 Hemoglobin 15.8 GM/DL Hematocrit 44.8 % Mean Corpuscular Volume 88.3 FL Mean Corpuscular Hemoglobin 31.0 PG Mean Corpuscular Hemoglobin 35.2 % Concent Red Cell Distribution Width 13.2 % Platelet Count 261 TH/MM3 Mean Platelet Volume 8.5 FL Neutrophils (%) (Auto) 73.1 % Lymphocytes (%) (Auto) 15.9 % Monocytes (%) (Auto) 7.6 % Eosinophils (%) (Auto) 2.7 % Basophils (%) (Auto) 0.7 % Neutrophils # (Auto) 4.3 TH/MM3 Lymphocytes # (Auto) 0.9 TH/MM3 Monocytes # (Auto) 0.4 TH/MM3 Eosinophils # (Auto) 0.2 TH/MM3 Basophils # (Auto) 0.0 TH/MM3 CBC Comment DIFF FINAL Differential Comment Prothrombin Time 10.3 SEC Prothromb Time International 0.9 RATIO Ratio Activated Partial 27.8 SEC Thromboplast Time Sodium Level 140 MEQ/L Potassium Level 4.0 MEQ/L Chloride Level 104 MEQ/L Carbon Dioxide Level 23.5 MEQ/L Anion Gap 13 MEQ/L Blood Urea Nitrogen 12 MG/DL Creatinine 0.98 MG/DL Estimat Glomerular Filtration 77 ML/MIN Rate Random Glucose 347 MG/DL Calcium Level 8.6 MG/DL Magnesium Level 2.1 MG/DL Total Creatine Kinase 61 U/L Troponin I LESS THAN 0.02 NG/ML B-Type Natriuretic Peptide 5 PG/ML MDM Medical Decision Making Medical Screen Exam Complete: Yes Emergency Medical Condition: Yes Medical Record Reviewed: Yes Interpretation(s) EKG normal sinus rhythm rate [address] elevation or injury pattern or ectopy noted CBC & BMP Diagram 10/03/16 19:55 Vital Signs Date Time Temp Pulse Resp B/P Pulse Ox O2 Delivery O2 Flow Rate FiO2 10/03/16 20:15 68 18 139/67 98 Room Air 135/67 10/03/16 20:15 66 18 139/67 98 Room Air 10/03/16 19:55 68 18 96 Room Air 10/03/16 19:45 96 Room Air 10/03/16 19:45 18 96 Room Air 10/03/16 19:40 98.2 67 18 134/76 96 Troponin I: less than 0.02, not elevated; CK: 61, not elevated; BNP: 5, not elevated CXR: CONCLUSION: 1. Minimal basilar atelectasis. Marcos Proctor MD on October 03, 2016 at 21:21 Board Certified Radiologist. This report was verified electronically. Differential Diagnosis Chest pain, ACS, myocardial infarction, CHF, aortic dissection, PE, esophageal spasm Narrative Course Patient placed on ekg monitor EKG performed which reveals no acute injury pattern or ST elevation; IV access obtained specimens collected and sent for resulting patient administered aspirin 162 mg by mouth no nitroglycerin administered as patient denies any chest pain or shortness of breath this time. EKG shows no acute injury pattern; patient at 21:25 PM remains chest pain-free and states short of breath has resolved the BNP is not elevated at 5; troponin I is not elevated at less than 0.02 and CK total is not elevated 61; patient does have postprandial hyperglycemia. Patient was spouse at bedside discussed with admission for chest pain center protocol as patient at risk for unstable angina ACS with precordial chest pain off of his antianginal regimen as he is not taking Plavix due to anticipated endoscopy on Sunday. Patient states that he is aware that he should be on Plavix and that his chest pain may be related to his heart even though his first EKG did not show any injury pattern or heart attack and his first set of heart enzymes were not elevated to suggest a heart attack but he does not want to stay and is aware that this could be consistent with unstable angina ACS reports at least chest pain center protocol observation admission the patient states he refuses to be admitted and will sign a medical advice and will follow up with his outpatient public relations analyst and will cancel his endoscopy and restart his Plavix. AMA: The risks of leaving against medical advice without further evaluation treatment were discussed with the patient. These risks include cardiac dysfunction, cardiac dysrhythmia, possible heart attack, possible stroke or . The patient indicated understanding of these risks and appeared to have the capacity to make this decision. Diagnosis Primary Impression: Chest pain Qualified Code: R07.2 - Precordial pain Additional Impression: Left against medical advice Patient Instructions: General Instructions Additional Instructions: AMA Disposition: 07 AGAINST MEDICAL ADVICE Condition: Stable Olinda Gilman MD Oct 03, 2016 20:10
[2016-10-03 20:15] VITALS: BP_SYST 135; BP_SYST 139; BP_DIAS 67; PULSE 66; PULSE 68; RESP 18; O2SAT 98
[2016-10-03] MEDS ORDERED: SODIUM CHLORIDE 0.9% FLUSH 10 ML FLUSH IVF PRN (20:15)
[2016-10-03] MEDS ORDERED: ASPIRIN 81 MG CHEW TAB PO ONE (20:15)
[2016-10-03 20:37] LABS: AUTOMATED NEUTROPHIL # 4.3 TH/MM3 (1.8-7.7); BASOPHIL % 0.7 % (0.0-2.0); EOSINOPHIL # 0.2 TH/MM3 (0-0.4); EOSINOPHIL % 2.7 % (0.0-4.0); HEMATOCRIT 44.8 % (39.0-51.0); LYMPH % 15.9 % (9.0-44.0); LYMPHOCYTE # 0.9 TH/MM3 (1.0-4.8); MEAN CELL VOLUME 88.3 FL (80.0-100.0); MEAN CORPUSCULAR HGB CONC 35.2 % (32.0-36.0); MONO % 7.6 % (0.0-8.0); NEUT % 73.1 % (16.0-70.0); PLATELET COUNT 261 TH/MM3 (150-450); RED BLOOD COUNT 5.07 MIL/MM3 (4.50-5.90); RED CELL DISTRIBUTION WIDTH 13.2 % (11.6-17.2); WHITE BLOOD COUNT 5.8 TH/MM3 (4.0-11.0)
[2016-10-03 20:39] LABS: HEMO FLAGS DIFF FINAL
[2016-10-03 20:45] VITALS: BP 127/65; PULSE 68; RESP 18; O2SAT 95
[2016-10-03 20:57] LABS: CHLORIDE 104 MEQ/L (98-107); SODIUM (NA) 140 MEQ/L (136-145)
[2016-10-03 21:00] LABS: ANION GAP 13 MEQ/L (5-15); BICARBONATE 23.5 MEQ/L (21.0-32.0); MAGNESIUM 2.1 MG/DL (1.5-2.5)
[2016-10-03 21:01] LABS: BLOOD UREA NITROGEN 12 MG/DL (7-18)
[2016-10-03 21:04] LABS: APTT (PATIENT) 27.8 SEC (24.3-30.1); GLOMERULAR FILTRATION RATE 77 ML/MIN (>89); INTERNATIONAL NORMALIZED RATIO 0.9 RATIO; PROTHROMBIN TIME - PATIENT 10.3 SEC (9.8-11.6)
[2016-10-03 21:08] LABS: CREATINE KINASE 61 U/L (39-308)
[2016-10-03 21:15] VITALS: BP 140/73; PULSE 64; RESP 18; O2SAT 96
--- NOTE | 2016-10-03 21:25 | RADHPO ---
EXAM DATE/TIME: 10/03/2016 20:21 [facility] COMPARISON: No previous studies available for comparison. INDICATIONS : Shortness of breath. MEDICAL HISTORY : Myocardial infarction. Chronic obstructive pulmonary disease. Diabetes mellitus type II. Congesti ve heart failure. SURGICAL HISTORY : Coronary artery stent. ENCOUNTER: Initial ACUITY: 1 day PAIN SCORE: 8/10 LOCATION: Left chest FINDINGS: A single view of the chest demonstrates the lungs to be symmetrically aerated without evidence of mas s, infiltrate or effusion. Minimal basilar atelectasis. The cardiomediastinal contours are unremarkab le. Osseous structures are intact. CONCLUSION: 1. Minimal basilar atelectasis. Marcos Proctor MD on October 03, 2016 at 21:21 Board Certified Radiologist. This report was verified electronically.
--- NOTE | 2016-10-04 06:44 | EKG ---
Date Performed: 10/03/2016 Time Performed: 19:51:01 PTAGE: 65 years EKG: Sinus rhythm BORDERLINE LEFT AXIS DEVIATION BORDERLINE ECG PREVIOUS TRACING : 08/03/2016 20.32 No significant change from previous tracing noted. DOCTOR: Jesse Rutledge Interpretating Date/Time 10/04/2016 06:44:24
== END 2016-10-03 21:35 | disposition left against medical advice (07) ==
LOC: PHED 19:39
DX: R07.2 Precordial pain (principal); R06.02 Shortness of breath; R42 Dizziness and giddiness; R94.31 Abnormal electrocardiogram [ECG] [EKG]; E78.00 Pure hypercholesterolemia, unspecified; E11.9 Type 2 diabetes mellitus without complications; I25.10 Atherosclerotic heart disease of native coronary artery without angina pectoris; I50.9 Heart failure, unspecified; I25.2 Old myocardial infarction; F17.200 Nicotine dependence, unspecified, uncomplicated; Z95.5 Presence of coronary angioplasty implant and graft; Z86.73 Personal history of transient ischemic attack (TIA), and cerebral infarction without residual deficits; Z79.01 Long term (current) use of anticoagulants
CPT/HCPCS: 71010; 80048; 82550; 83735; 83880; 84484; 85025; 85610; 85730; 93005

== ENCOUNTER 2017-01-02 15:34 | Inpatient (IN) | payer OTHER, MEDICARE ==
[2017-01-02] VITALS (7 sets, daily range): BP systolic 120–168; BP diastolic 51–77; PULSE 80–96; RESP 18–20; TEMP 98.9–99.9; O2SAT 89–95
[~2017-01-02] VITALS: Ht 165.1 cm; Wt 72.9 kg
[~2017-01-02 15:34] MED LIST changes: -BRIL90TA PO; +PLAV75TA29 PO
[2017-01-02] MEDS ORDERED: SODIUM CHLOR 0.9% 1000 ML INJ 1,000 ML IV ONE (16:11)
[2017-01-02] MEDS ORDERED: ONDANSETRON HCL 4 MG/2 ML VIAL IVP ONE (16:15)
[2017-01-02] MEDS ORDERED: MORPHINE SULFATE 4 MG/ML INJ IV ONE (16:15)
[2017-01-02] MEDS ORDERED: SODIUM CHLORIDE 0.9% FLUSH 10 ML FLUSH IVF PRN (16:15)
--- NOTE | 2017-01-02 16:21 | PD ---
HPI . Diarrhea Chief Complaint: GI Complaint Time Seen by Provider: 16:07 Travel History International Travel<30 days: No Contact w/Intl Traveler<30days: No Traveled to known affect area: No History of Present Illness HPI This patient presents with the chief complaint diarrhea. Onset is today. Patient reports that the diarrhea has been profound. He has had some associated nausea. No vomiting. He denies any known exposures. He states that he has not been on antibiotics in the recent past. He reports no fever. He is complaining with diffuse abdominal pain. No noted modifying factors. In addition, the patient is complaining with shortness of breath and chest discomfort. He reports a history of COPD. PFSH Past Medical History Hx Anticoagulant Therapy: Yes (PLAVIX/ASA) Arthritis: No Asthma: No Autoimmune Disease: No Anxiety: No Depression: No Heart Rhythm Problems: No Cancer: No Cardiac Catheterization: Yes (JAN 2010) Cardiovascular Problems: Yes High Cholesterol: Yes Chemotherapy: No Chest Pain: Yes Congestive Heart Failure: Yes COPD: Yes Cerebrovascular Accident: Yes Coronary Artery Disease: Yes Diabetes: Yes Patient Takes Glucophage: No Diminished Hearing: No Endocrine: Yes Gastrointestinal Disorders: Yes (EGD AND COLONOSCOPY) GERD: Yes Genitourinary: No Headaches: Yes Hiatal Hernia: No Hypertension: No Immune Disorder: No Implanted Vascular Access Dvce: No Kidney Stones: No Musculoskeletal: No Neurologic: No Psychiatric: No Reproductive: No Respiratory: Yes (COPD, BRONCHITIS) Immunizations Current: Yes Migraines: No Myocardial Infarction: Yes (2009) Pneumonia: Yes Radiation Therapy: No Renal Failure: No Seizures: No Sleep Apnea: No Thyroid Disease: No Ulcer: Yes (GASTRIC) Influenza Vaccination: No Past Surgical History Abdominal Surgery: No AICD: No Arteriovenous Shunt: No Cardiac Surgery: Yes (HEART STENT 2009) Coronary Stent: Yes (MULTIPLE) Ear Surgery: No Endocrine Surgery: No Eye Surgery: No Genitourinary Surgery: No Gynecologic Surgery: No Hysterectomy: No Insulin Pump: No Neurologic Surgery: No Oral Surgery: Yes Pacemaker: No Thoracic Surgery: No Other Surgery: Yes Social History Alcohol Use: No (STATES QUIT 2011) Tobacco Use: No (QUIT Mar, USES E-CIG) Substance Use: No Allergies-Medications (Allergen,Severity, Reaction): Coded Allergies: acetaminophen (Unverified Allergy, Severe, ITCHING/SWELLING, 01/02/17) codeine (Unverified Allergy, Severe, ITCHING/SWELLING, 01/02/17) hydrocodone (Unverified Allergy, Severe, ITCHING/SWELLING, 01/02/17) ticagrelor (Unverified Allergy, Severe, VOMITING, CRAMPS, 01/02/17) Reported Meds & Prescriptions Reported Meds & Active Scripts Active Protonix (Pantoprazole Sodium) 40 Mg Tab 40 Mg PO DAILY Reported Plavix (Clopidogrel Bisulfate) 75 Mg Tab 75 Mg PO DAILY Glipizide 5 Mg Tab 5 Mg PO DAILY Take 30 minutes before a meal Aspirin 81 (Aspirin) 81 Mg Tabdr 81 Mg PO HS Review of Systems Except as stated in HPI: all other systems reviewed are Neg General / Constitutional: No: Fever, Chills Cardiovascular: Positive: Chest Pain or Discomfort Respiratory: Positive: Shortness of Breath Gastrointestinal: Positive: Nausea, Diarrhea, Abdominal Pain, No: Vomiting Genitourinary: No: Urgency, Frequency, Dysuria, Decreased Urinary Output Musculoskeletal: Positive: Pain (back pain) Physical Exam Narrative GENERAL: This patient is awake and alert and does not really appear to be in any distress. SKIN: warm/dry. Good turgor. HEAD: Normocephalic. Atraumatic. EYES: Pupils equal and round. No scleral icterus. No injection or drainage. ENT: No nasal bleeding or discharge. Mucous membranes pink and moist. NECK: Trachea midline. Full range of motion without pain.. CARDIOVASCULAR: Regular rate and rhythm. Heart sounds are normal. RESPIRATORY: No accessory muscle use. Clear to auscultation. Breath sounds equal bilaterally. GASTROINTESTINAL: Abdomen soft. Diffusely tender. No guarding or rebound. Bowel sounds present. Nondistended. MUSCULOSKELETAL: No obvious deformities. NEUROLOGICAL: Awake and alert. No obvious cranial nerve deficits. Motor grossly within normal limits. Normal speech. PSYCHIATRIC: Appropriate mood and affect; insight and judgment normal. Data Data Last Documented VS Vital Signs Date Time Temp Pulse Resp B/P (MAP) Pulse Ox O2 Delivery O2 Flow Rate FiO2 01/02/17 17:23 96 18 168/75 (106) 92 Nasal Cannula 2.00 01/02/17 15:48 98.9 Orders Orders Complete Blood Count With Diff (01/02/17 16:11) Comprehensive Metabolic Panel (01/02/17 16:11) Urinalysis - C+S If Indicated (01/02/17 16:11) Ct Abd/Pel W Iv Contrast(Rout) (01/02/17 ) Iv Access Insert/Monitor (01/02/17 16:11) Ecg Monitoring (01/02/17 16:11) Oximetry (01/02/17 16:11) Morphine Inj (Morphine Inj) (01/02/17 16:15) Ondansetron Inj (Zofran Inj) (01/02/17 16:15) Sodium Chlor 0.9% 1000 Ml Inj (Ns 1000 M (01/02/17 16:11) Sodium Chloride 0.9% Flush (Ns Flush) (01/02/17 16:15) C Diff Toxin Pcr (01/02/17 16:11) Enteric Path (Stool) (01/02/17 16:11) Lactic Acid (01/02/17 16:11) Electrocardiogram (01/02/17 16:11) B-Type Natriuretic Peptide (01/02/17 16:11) Troponin I (01/02/17 16:11) Oxygen Administration (01/02/17 16:11) Chest, Single Ap (01/02/17 16:11) Iohexol 350 Inj (Omnipaque 350 Inj) (01/02/17 17:12) Blood Culture (01/02/17 17:26) Ceftriaxone Inj (Rocephin Inj) (01/02/17 17:30) Azithromycin Inj (Zithromax Inj) (01/02/17 17:30) Admit Order (Ed Use Only) (01/02/17 18:00) Labs Laboratory Tests Test 01/02/17 16:23 01/02/17 17:29 White Blood Count 10.0 TH/MM3 Red Blood Count 5.28 MIL/MM3 Hemoglobin 15.1 GM/DL Hematocrit 45.2 % Mean Corpuscular Volume 85.6 FL Mean Corpuscular Hemoglobin 28.7 PG Mean Corpuscular Hemoglobin Concent 33.5 % Red Cell Distribution Width 13.0 % Platelet Count 244 TH/MM3 Mean Platelet Volume 6.8 FL Neutrophils (%) (Auto) 85.8 % Lymphocytes (%) (Auto) 7.1 % Monocytes (%) (Auto) 5.6 % Eosinophils (%) (Auto) 0.7 % Basophils (%) (Auto) 0.8 % Neutrophils # (Auto) 8.5 TH/MM3 Lymphocytes # (Auto) 0.7 TH/MM3 Monocytes # (Auto) 0.6 TH/MM3 Eosinophils # (Auto) 0.1 TH/MM3 Basophils # (Auto) 0.1 TH/MM3 CBC Comment DIFF FINAL Differential Comment Blood Urea Nitrogen 17 MG/DL Creatinine 0.93 MG/DL Random Glucose 255 MG/DL Total Protein 7.3 GM/DL Albumin 3.9 GM/DL Calcium Level 9.0 MG/DL Alkaline Phosphatase 84 U/L Aspartate Amino Transf (AST/SGOT) 10 U/L Alanine Aminotransferase (ALT/SGPT) 27 U/L Total Bilirubin 0.6 MG/DL Sodium Level 134 MEQ/L Potassium Level 3.8 MEQ/L Chloride Level 101 MEQ/L Carbon Dioxide Level 24.8 MEQ/L Anion Gap 8 MEQ/L Estimat Glomerular Filtration Rate 81 ML/MIN Lactic Acid Level 0.8 mmol/L Troponin I LESS THAN 0.02 NG/ML B-Type Natriuretic Peptide 8 PG/ML Urine Color YELLOW Urine Turbidity CLEAR Urine pH 5.5 Urine Specific [place] 1.035 Urine Protein NEG mg/dL Urine Glucose (UA) 1000 OR GREATER mg/dL Urine Ketones 80 OR GREATER mg/dL Urine Occult Blood TRACE Urine Nitrite NEG Urine Bilirubin NEG Urine Leukocyte Esterase NEG Urine RBC 0-3 /hpf Urine WBC 0-2 /hpf Urine Squamous Epithelial Cells 0-5 /hpf Microscopic Urinalysis Comment CULT NOT INDICATED MDM Medical Decision Making Medical Screen Exam Complete: Yes Emergency Medical Condition: Yes Medical Record Reviewed: Yes (medical history significant for COPD, coronary artery disease status post stents, diabetes and GERD. He has been seen here several times in the recent past with chest pain and has refused admission to the chest pain center) Interpretation(s) EKG shows a sinus arrhythmia with no acute ischemic changes. Differential Diagnosis Differential diagnosis of diarrhea includes but is not limited to early enteritis, bacterial enteritis, antibiotic induced diarrhea, irritable bowel syndrome Differential diagnosis of dyspnea includes but is not limited to congestive heart failure, pneumonia, wheezing, pneumothorax, pulmonary embolism Differential diagnosis of chest pain includes but is not limited to musculoskeletal pain, pulmonary embolism, acute coronary syndrome, pneumonia, pleurisy Narrative Course This patient presents with the acute onset of diarrhea. He'll be treated with IV fluids, morphine and Zofran. Stool samples will be sent to the lab for evaluation. CT of the abdomen has been ordered to rule out diverticulitis. In addition, the patient has decreased. He reports a history of COPD. His lungs are clear. His respiratory rate is 18 with a room air saturation of 94%. Chest x-ray and BNP are pending. Furthermore, he complains with some chest pain. EKG and troponin have been ordered. Last Impressions Chest X-Ray 01/02/17 1611 Signed Impressions: Service Date/Time: Monday, January 02, 2017 17:04 - CONCLUSION: 1. Subsegmental right basilar air space disease. No effusion. No pneumothorax. Marcos Proctor MD The chest x-ray was independently viewed by me. Blood cultures, Rocephin and Zithromax were subsequently added. It looks like his sats drop down into the upper 80s off of oxygen. On review of his previous sats, he usually runs in the mid to upper 90s. This patient has a history of bleeding AMA. Before consult the hospitalist for admission, I discussed the disposition with the patient. He states that he is willing to stay today. He states that he feels very poorly and feels like he needs to be admitted. CBC & BMP Diagram 01/02/17 16:23 Total Protein 7.3, Albumin 3.9, Calcium Level 9.0, Alkaline Phosphatase 84, Aspartate Amino Transf (AST/SGOT) 10 L, Alanine Aminotransferase (ALT/SGPT) 27, Total Bilirubin 0.6 Trop < 0.02 BNP is 8. Lactic acid is 0.8. CT of the abdomen was negative for acute findings. Sepsis Criteria SIRS Criteria (2 or more): Heart rate over [address] Phys[address] Communication Dr. Zhou. He has requested a full admission. Diagnosis Primary Impression: Diarrhea Qualified Codes: R19.7 - Diarrhea, unspecified Additional Impressions: Pulmonary infiltrate in right lung on CXR Abdominal pain Qualified Codes: R10.84 - Generalized abdominal pain Chest pain Qualified Codes: R07.9 - Chest pain, unspecified Admitting Information Admitting Physician Requests: Admit Condition: Stable Shabana Jerome MD Jan 02, 2017 16:21
[2017-01-02 16:29] LABS: AUTOMATED NEUTROPHIL # 8.5 TH/MM3 (1.8-7.7); BASOPHIL # 0.1 TH/MM3 (0-0.2); BASOPHIL % 0.8 % (0.0-2.0); EOSINOPHIL # 0.1 TH/MM3 (0-0.4); EOSINOPHIL % 0.7 % (0.0-4.0); HEMATOCRIT 45.2 % (39.0-51.0); LYMPH % 7.1 % (9.0-44.0); LYMPHOCYTE # 0.7 TH/MM3 (1.0-4.8); MEAN CELL VOLUME 85.6 FL (80.0-100.0); MEAN CORPUSCULAR HEMOGLOBIN 28.7 PG (27.0-34.0); MEAN CORPUSCULAR HGB CONC 33.5 % (32.0-36.0); MONO % 5.6 % (0.0-8.0); NEUT % 85.8 % (16.0-70.0); PLATELET COUNT 244 TH/MM3 (150-450); RED BLOOD COUNT 5.28 MIL/MM3 (4.50-5.90)
[2017-01-02 16:37] LABS: CHLORIDE 101 MEQ/L (98-107); POTASSIUM 3.8 MEQ/L (3.5-5.1); SODIUM (NA) 134 MEQ/L (136-145)
[2017-01-02 16:41] LABS: ANION GAP 8 MEQ/L (5-15); BICARBONATE 24.8 MEQ/L (21.0-32.0); BLOOD UREA NITROGEN 17 MG/DL (7-18)
[2017-01-02 16:44] LABS: ALT (GPT) 27 U/L (12-78); AST (GOT) 10 U/L (15-37); GLOMERULAR FILTRATION RATE 81 ML/MIN (>89)
[2017-01-02 16:46] LABS: TOTAL BILIRUBIN ADULT 0.6 MG/DL (0.2-1.0)
[2017-01-02 16:47] LABS: ALKALINE PHOSPHATASE 84 U/L (45-117)
[2017-01-02 16:51] LABS: HEMO FLAGS DIFF FINAL
[2017-01-02] MEDS ORDERED: IOHEXOL 350 MG/ML 10 ML VIAL (for RAD DIAG) IVCONTRAST ONE (17:12)
--- NOTE | 2017-01-02 17:18 | RADRPT ---
EXAM DATE/TIME: 01/02/2017 17:04 [facility] COMPARISON: CHEST SINGLE AP, October 03, 2016, 20:21. INDICATIONS : Short of breath today. MEDICAL HISTORY : Chronic obstructive pulmonary disease. Cardiovascular disease. SURGICAL HISTORY : Coronary artery stent. ENCOUNTER: Initial ACUITY: 1 day PAIN SCORE: 3/10 LOCATION: Bilateral chest FINDINGS: A single view of the chest demonstrates subsegmental right basilar air space disease. Mild interstiti al prominence. No effusion. No pneumothorax. Heart size upper limits normal. CONCLUSION: 1. Subsegmental right basilar air space disease. No effusion. No pneumothorax. Marcos Proctor MD on January 02, 2017 at 17:16 Board Certified Radiologist. This report was verified electronically.
--- NOTE | 2017-01-02 17:25 | RADRPT ---
EXAM DATE/TIME: 01/02/2017 17:08 [facility] COMPARISON: CT ABDOMEN & PELVIS W CONTRAST, July 06, 2016, 0:16. INDICATIONS : Diffuse abdominal pain with nausea and diarrhea. IV CONTRAST: 95 cc Omnipaque 350 (iohexol) IV ORAL CONTRAST: No oral contrast ingested. RADIATION DOSE: 11.79 CTDIvol (mGy) MEDICAL HISTORY : Cardiovascular disease. Congestive heart failure. Gastroesophageal reflux disease.Diabetes. SURGICAL HISTORY : Coronary artery stent. ENCOUNTER: Initial ACUITY: 1 day PAIN SCALE: 5/10 LOCATION: Bilateral abdomen TECHNIQUE: Volumetric scanning of the abdomen and pelvis was performed. Using automated exposure control and ad justment of the mA and/or kV according to patient size, radiation dose was kept as low as reasonably achievable to obtain optimal diagnostic quality images. DICOM format image data is available electro nically for review and comparison. FINDINGS: Compare July 06. Stable fatty liver. Minimal basilar atelectasis in the lungs. Spleen, adrenals, kid neys and pancreas unremarkable. No bowel obstruction. No free air free fluid. No adenopathy. Appendix appears normal. Left iliac sten t present. CONCLUSION: 1. No acute findings. Fatty liver. Small right renal cyst. No significant change from June. Marcos Proctor MD on January 02, 2017 at 17:17 Board Certified Radiologist. This report was verified electronically.
[2017-01-02] MEDS ORDERED: AZITHROMYCIN INJ 500 MG in SODIUM CHLOR 0.9% 250 ML INJ 250 ML IV ONE (17:30)
[2017-01-02] MEDS ORDERED: cefTRIAXone INJ 2,000 MG in SODIUM CHLORIDE 0.9% INJ 100 ML IV ONE (17:30)
[2017-01-02 17:38] LABS: BLOOD, URINE TRACE (NEG); GLUCOSE,URINE 1000 OR GREATER mg/dL (NEG); KETONE, URINE 80 OR GREATER mg/dL (NEG); NITRITE,URINE NEG (NEG); PH, URINE 5.5 (5.0-8.5)
[2017-01-02 17:44] LABS: COMMENT (UR) CULT NOT INDICATED; CULTURE IF INDICATED CULT NOT INDICATED; RBC, URINE 0-3 /hpf (0-3); SQUAMOUS EPITHELIAL CELL URINE 0-5 /hpf (0-5); URINE COLOR YELLOW (YELLW/STRAW); WBC, URINE 0-2 /hpf (0-5)
[2017-01-02] MEDS ORDERED: ONDANSETRON HCL 4 MG/2 ML VIAL IVP PRN (19:00)
[2017-01-02] MEDS ORDERED: NALOXONE HCL 0.4 MG/ML AMP IV PUSH PRN (19:00)
[2017-01-02] MEDS ORDERED: ACETAMINOPHEN 325 MG TAB PO PRN (19:00)
[2017-01-02] MEDS ORDERED: LACTULOSE SYRUP 20 GM/30 ML CUP PO PRN (19:00)
[2017-01-02] MEDS ORDERED: BISACODYL 10 MG SUPP RECTAL PRN (19:00)
[2017-01-02] MEDS ORDERED: SENNOSIDES 8.6 MG TAB PO PRN (19:00)
[2017-01-02] MEDS ORDERED: MAGNESIUM HYDROXIDE SUSP 30 ML CUP PO PRN (19:00)
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
[2017-01-02] MEDS ORDERED: ENOXAPARIN SODIUM 40 MG/0.4 ML SYRINGE SQ SCH (20:00)
[2017-01-02] MEDS ORDERED: RESP: ALBUTEROL 2.5 MG/IPRATROPIUM 0.5 MG NEB (PRN) NEB (20:00)
[2017-01-02] MEDS: RESP: ALBUTEROL 2.5 MG/IPRATROPIUM 0.5 MG NEB (SCH) NEB (20:00)
[2017-01-02] MEDS: SODIUM CHLOR 0.9% 1000 ML INJ 1,000 ML IV SCH (20:01)
[2017-01-02] MEDS ORDERED: ALUMINUM/MAGNESIUM/SIMETH 30 ML CUP PO PRN (20:15)
[2017-01-02] MEDS ORDERED: DEXTROSE 50% IN WATER 50 ML VIAL(D50) IV PUSH PRN (20:15)
[2017-01-02] MEDS ORDERED: GLUCAGON 1 MG/ML VIAL OTHER PRN (20:15)
[2017-01-02] MEDS: INSULIN ASPART SUPPLEMENTAL SCALE SQ SCH (21:00)
[2017-01-02] MEDS: LACTOBACILLUS ACIDOPHILUS TAB PO SCH (21:00)
[2017-01-02] MEDS: DOCUSATE SODIUM 50 MG/SENNA 8.6 MG TAB PO SCH (21:00)
[2017-01-02] MEDS ORDERED: ASPIRIN EC 81 MG TABEC PO SCH (21:00)
[2017-01-02] MEDS ORDERED: NITROGLYCERIN 0.4 MG SL 25 TABS/BTL SL PRN (22:00)
[2017-01-02] MEDS ORDERED: HEPARIN-D5W 25,000 U/250 ML 250 ML IV PRN (22:00)
[2017-01-02 23:01] LABS: APTT (PATIENT) 30.1 SEC (24.3-30.1); PROTHROMBIN TIME - PATIENT 11.4 SEC (9.8-11.6)
[2017-01-03] VITALS: BP 110/65; PULSE 80; RESP 18; TEMP 100.3; O2SAT 92
[2017-01-03 00:44] VITALS: O2SAT 95
[2017-01-03 01:10] VITALS: TEMP 99.6
[2017-01-03 04:00] VITALS: BP 101/53; PULSE 67; RESP 18; TEMP 97.8; O2SAT 90
[2017-01-03 05:19] LABS: CHLORIDE 103 MEQ/L (98-107); POTASSIUM 3.3 MEQ/L (3.5-5.1); SODIUM (NA) 137 MEQ/L (136-145)
[2017-01-03 05:22] LABS: AUTOMATED NEUTROPHIL # 7.8 TH/MM3 (1.8-7.7); BASOPHIL % 0.2 % (0.0-2.0); EOSINOPHIL % 0.5 % (0.0-4.0); HEMATOCRIT 38.4 % (39.0-51.0); MEAN CELL VOLUME 85.7 FL (80.0-100.0); MEAN CORPUSCULAR HEMOGLOBIN 29.6 PG (27.0-34.0); MEAN CORPUSCULAR HGB CONC 34.6 % (32.0-36.0); MONO % 6.9 % (0.0-8.0); NEUT % 81.4 % (16.0-70.0); PLATELET COUNT 216 TH/MM3 (150-450); RED BLOOD COUNT 4.48 MIL/MM3 (4.50-5.90); RED CELL DISTRIBUTION WIDTH 13.4 % (11.6-17.2); WHITE BLOOD COUNT 9.5 TH/MM3 (4.0-11.0)
[2017-01-03 05:23] LABS: HEMO FLAGS DIFF FINAL
[2017-01-03] MEDS: SODIUM CHLOR 0.9% 1000 ML INJ 1,000 ML IV SCH (05:43)
[2017-01-03 05:44] LABS: ALKALINE PHOSPHATASE 64 U/L (45-117); ALT (GPT) 20 U/L (12-78); ANION GAP 9 MEQ/L (5-15); AST (GOT) 10 U/L (15-37); BICARBONATE 25.4 MEQ/L (21.0-32.0); BLOOD UREA NITROGEN 10 MG/DL (7-18); GLOMERULAR FILTRATION RATE 107 ML/MIN (>89); TOTAL BILIRUBIN ADULT 0.8 MG/DL (0.2-1.0)
[2017-01-03 08:00] VITALS: BP 113/67; PULSE 68; RESP 20; TEMP 97.2; O2SAT 93
[2017-01-03] MEDS: RESP: ALBUTEROL 2.5 MG/IPRATROPIUM 0.5 MG NEB (SCH) NEB ×2 (08:00→09:57)
[2017-01-03] MEDS: LACTOBACILLUS ACIDOPHILUS TAB PO SCH (08:49)
[2017-01-03] MEDS: DOCUSATE SODIUM 50 MG/SENNA 8.6 MG TAB PO SCH (08:49)
[2017-01-03] MEDS: INSULIN ASPART SUPPLEMENTAL SCALE SQ SCH ×3 (08:51→13:25)
[2017-01-03] MEDS ORDERED: CLOPIDOGREL 75 MG TAB PO SCH (09:00)
[2017-01-03 09:50] VITALS: O2SAT 95
[2017-01-03] MEDS ORDERED: AZIT250T3 PO (13:09)
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
--- NOTE | 2017-01-03 13:10 | HHI.DCPOC ---
Discharge Care Plan Your Health Problems Are: Shortness of Breath Additional Problems Pneumonia Goals to Promote Your Health * To prevent worsening of your condition and complications * To maintain your health at the optimal level Directions to Meet Your Goals Take your medications as prescribed Follow your dietary instruction Follow activity as directed Keep your appointments as scheduled Take your immunizations and boosters as scheduled If your symptoms worsen call your PCP, if no PCP go to Urgent Care Center or Emergency Room Smoking is Dangerous to Your Health. Avoid second hand smoke Call the 24-hour hour crisis hotline for domestic abuse at Williams Matt MD Jan 03, 2017 13:10
[2017-01-03] MEDS ORDERED: cefTRIAXone INJ 2,000 MG in SODIUM CHLORIDE 0.9% INJ 100 ML IV SCH (17:00)
[2017-01-03] MEDS ORDERED: AZITHROMYCIN INJ 500 MG in SODIUM CHLOR 0.9% 250 ML INJ 250 ML IV SCH (18:00)
--- NOTE | 2017-01-03 20:47 | EKG ---
Date Performed: 01/03/2017 Time Performed: 00:36:14 PTAGE: 66 years EKG: Sinus rhythm POSSIBLE LEFT ATRIAL ENLARGEMENT NONSPECIFIC T-WAVE ABNORMALITY BORDERLINE ECG PREVIOUS TRACING : 01/02/2017 21.39 Compared to prior tracing no significant change DOCTOR: Minor Dove Interpretating Date/Time 01/03/2017 20:43:36
--- NOTE | 2017-01-03 20:49 | EKG ---
Date Performed: 01/02/2017 Time Performed: 21:39:41 PTAGE: 66 years EKG: Sinus rhythm NONSPECIFIC T-WAVE ABNORMALITY BORDERLINE ECG PREVIOUS TRACING : 01/02/2017 19.47 Compared to prior tracing no significant change DOCTOR: Minor Dove Interpretating Date/Time 01/03/2017 20:45:19
--- NOTE | 2017-01-03 20:52 | EKG ---
Date Performed: 01/02/2017 Time Performed: 19:47:47 PTAGE: 66 years EKG: Sinus rhythm BORDERLINE LEFT AXIS DEVIATION NONSPECIFIC T-WAVE ABNORMALITY BORDERLINE ECG PREVIOUS TRACING : 01/02/2017 16.23 Compared to prior tracing no significant change DOCTOR: Minor Dove Interpretating Date/Time 01/03/2017 20:47:07
--- NOTE | 2017-01-03 20:58 | EKG ---
Date Performed: 01/02/2017 Time Performed: 16:23:34 PTAGE: 66 years EKG: Sinus rhythm WITH SINUS ARRHYTHMIA BORDERLINE LEFT AXIS DEVIATION NONSPECIFIC T-WAVE ABNORMALITY BORDERLINE ECG PREVIOUS TRACING : 10/03/2016 19.51 Compared to prior tracing no significant change DOCTOR: Minor Dove Interpretating Date/Time 01/03/2017 20:50:15
== END 2017-01-03 15:14 | disposition home or self-care (01) | DRG 190 ==
LOC: PHED 15:34 → PHEDA 18:01 → PH3A 18:48
PROVIDERS: ADMIT Hospitalist; ATTEND Hospitalist
DX: J44.0 Chronic obstructive pulmonary disease with (acute) lower respiratory infection (principal); J18.9 Pneumonia, unspecified organism; E11.65 Type 2 diabetes mellitus with hyperglycemia; E87.1 Hypo-osmolality and hyponatremia; I25.10 Atherosclerotic heart disease of native coronary artery without angina pectoris; K21.9 Gastro-esophageal reflux disease without esophagitis; R09.02 Hypoxemia; K52.9 Noninfective gastroenteritis and colitis, unspecified; E78.5 Hyperlipidemia, unspecified; Z87.891 Personal history of nicotine dependence; I25.2 Old myocardial infarction; Z95.5 Presence of coronary angioplasty implant and graft; Z86.73 Personal history of transient ischemic attack (TIA), and cerebral infarction without residual deficits; Z79.84 Long term (current) use of oral hypoglycemic drugs
CPT/HCPCS: 71010; 74177; 80053; 81001; 82550; 82948; 83605; 83880; 84484; 85025; 85610; 85730; 87040; 93005; 94620; 94664; 96361; 96374; 96375; J0456; J0696; J1815; J2270; J2405; J7030; J7050; Q9967

== ENCOUNTER 2017-08-28 20:58 | Emergency (ER) | payer OTHER ==
[~2017-08-28] VITALS: Ht 165.1 cm; Wt 73.3 kg
[~2017-08-28 20:58] MED LIST changes: -ASPI-110 PO; +ASPI1TAB57 PO; +AZIT250T3 PO; -PROT40TA PO
[2017-08-28 21:09] VITALS: BP 182/84; PULSE 55; RESP 20; TEMP 98; O2SAT 97
[2017-08-28] MEDS ORDERED: GLIP5TAB8 PO (21:14)
[2017-08-28] MEDS ORDERED: PANT40TA3 PO (21:14)
[2017-08-28] MEDS ORDERED: SODIUM CHLORIDE 0.9% FLUSH 10 ML FLUSH IVF PRN (21:45)
[2017-08-28 21:52] VITALS: BP 166/73; PULSE 57; RESP 18; O2SAT 95
[2017-08-28 22:00] VITALS: PULSE 57; RESP 18; O2SAT 94
[2017-08-28] MEDS ORDERED: SODIUM CHLOR 0.9% 1000 ML INJ 1,000 ML IV ONE (22:00)
[2017-08-28] MEDS ORDERED: INSULIN HUMAN REGULAR 1,000 UNITS/10 ML VIAL IV PUSH ONE (22:00)
[2017-08-28 22:03] LABS: BILIRUBIN, URINE NEG (NEG); BLOOD, URINE NEG (NEG); GLUCOSE,URINE 1000 OR GREATER mg/dL (NEG); KETONE, URINE NEG (NEG); NITRITE,URINE NEG (NEG); PH, URINE 5.5 (5.0-8.5); URINE COLOR YELLOW (YELLW/STRAW); URINE LEUKOCYTE ESTERASE NEG (NEG)
[2017-08-28 22:06] LABS: AUTOMATED NEUTROPHIL # 2.7 TH/MM3 (1.8-7.7); BASOPHIL % 0.5 % (0.0-2.0); EOSINOPHIL # 0.1 TH/MM3 (0-0.4); EOSINOPHIL % 2.6 % (0.0-4.0); HEMATOCRIT 45.4 % (39.0-51.0); HEMOGLOBIN 15.5 GM/DL (13.0-17.0); LYMPH % 33.2 % (9.0-44.0); LYMPHOCYTE # 1.6 TH/MM3 (1.0-4.8); MEAN CELL VOLUME 85.9 FL (80.0-100.0); MEAN CORPUSCULAR HEMOGLOBIN 29.4 PG (27.0-34.0); MEAN CORPUSCULAR HGB CONC 34.2 % (32.0-36.0); MEAN PLATELET VOLUME 7.6 FL (7.0-11.0); MONO % 7.2 % (0.0-8.0); MONOCYTE # 0.3 TH/MM3 (0-0.9); NEUT % 56.5 % (16.0-70.0); PLATELET COUNT 260 TH/MM3 (150-450); RED BLOOD COUNT 5.28 MIL/MM3 (4.50-5.90); RED CELL DISTRIBUTION WIDTH 12.4 % (11.6-17.2); WHITE BLOOD COUNT 4.7 TH/MM3 (4.0-11.0)
--- NOTE | 2017-08-28 22:09 | PD ---
HPI Chief Complaint: Abnormal Results Time Seen by Provider: 21:44 Travel History International Travel<30 days: No Contact w/Intl Traveler<30days: No Traveled to known affect area: No History of Present Illness HPI 66-year-old male presents to the emergency department complaint of generalized weakness since Sunday. Patient reportedly had a fever of 101F 1 on Sunday , took acetaminophen once and has not had recurrent fever. No report of chills. Patient continues complain of generalized weakness and arthralgias . Patient states blood sugars have been poorly controlled. Patient's blood sugar on Sunday was 155; but today blood sugars were 530 as he did not take his diabetic medication today. Patient did not take his glipizide today because yesterday when he took his glipizide he reports the thought it made him feel strange; patient did not check his blood sugar at that time. Patient has had fair oral intake and ate dinner just prior to arrival to the ED. Patient's had occasional nausea without vomiting. Patient denies chest pain or shortness of breath or sweats. Patient denies referred neck jaw back shoulder or arm pain. Patient denies symptoms of headache sinus pressure drainage sore throat earache neck pain stiffness productive cough vomiting abdominal pain flank pain dysuria frequency urgency or diarrhea. Patient has had some migratory joint pain but denies generalized myalgias and arthralgias. Patient has history of diabetes CAD with stents hypertension and dyslipidemia. Patient is unable to identify exacerbating or alleviating factors. PFSH Past Medical History Narrative Medical CAD with anticoagulation cardiac stents hypertension dyslipidemia diabetes prior tobacco use; nursing notes reviewed Hx Anticoagulant Therapy: Yes (PLAVIX/ASA) Arthritis: No Asthma: No Autoimmune Disease: No Anxiety: No Depression: No Heart Rhythm Problems: No Cancer: No Cardiac Catheterization: Yes (JAN 2010) Cardiovascular Problems: Yes High Cholesterol: Yes Chemotherapy: No Chest Pain: Yes Congestive Heart Failure: Yes COPD: Yes Cerebrovascular Accident: Yes Coronary Artery Disease: Yes Diabetes: Yes (GLIPIZIDE) Patient Takes Glucophage: No Diminished Hearing: No Endocrine: Yes Gastrointestinal Disorders: Yes (EGD AND COLONOSCOPY) GERD: Yes Genitourinary: No Headaches: Yes Hiatal Hernia: No Hypertension: No Immune Disorder: No Implanted Vascular Access Dvce: No Kidney Stones: No Musculoskeletal: No Neurologic: No Psychiatric: No Reproductive: No Respiratory: Yes (COPD, BRONCHITIS) Immunizations Current: Yes Migraines: No Myocardial Infarction: Yes (2009) Pneumonia: Yes Radiation Therapy: No Renal Failure: No Seizures: No Sleep Apnea: No Thyroid Disease: No Ulcer: Yes (GASTRIC) Influenza Vaccination: No Past Surgical History Abdominal Surgery: Yes (EGD/COLONOSCOPY) AICD: No Arteriovenous Shunt: No Cardiac Surgery: Yes (HEART STENT 2009august 22 stents) Coronary Stent: Yes (MULTIPLE) Ear Surgery: No Endocrine Surgery: No Eye Surgery: No Genitourinary Surgery: No Gynecologic Surgery: No Hysterectomy: No Insulin Pump: No Joint Replacement: No Neurologic Surgery: No Oral Surgery: Yes Pacemaker: No Thoracic Surgery: No Other Surgery: Yes Social History Alcohol Use: No (STATES QUIT 2011) Tobacco Use: Yes (USES E-CIG) Substance Use: No Allergies-Medications (Allergen,Severity, Reaction): Coded Allergies: acetaminophen (Unverified Allergy, Severe, ITCHING/SWELLING, 08/28/17) codeine (Unverified Allergy, Severe, ITCHING/SWELLING, 08/28/17) hydrocodone (Unverified Allergy, Severe, ITCHING/SWELLING, 08/28/17) ticagrelor (Unverified Allergy, Severe, VOMITING, CRAMPS, 08/28/17) Reported Meds & Prescriptions Reported Meds & Active Scripts Active Reported Pantoprazole (Pantoprazole Sodium) 40 Mg Tab 40 Mg PO DAILY Glipizide 5 Mg Tab 5 Mg PO BIDAC Take 30 minutes before a meal Plavix (Clopidogrel Bisulfate) 75 Mg Tab 75 Mg PO DAILY Aspirin 81 (Aspirin) 81 Mg Tabdr 81 Mg PO HS Review of Systems Except as stated in HPI: all other systems reviewed are Neg General / Constitutional: Positive: Fever, No: Chills HENT: No: Congestion Cardiovascular: No: Chest Pain or Discomfort Respiratory: No: Cough, Shortness of Breath Gastrointestinal: Positive: Nausea, No: Vomiting, Diarrhea, Abdominal Pain Genitourinary: No: Dysuria, Flank Pain Musculoskeletal: Positive: Arthralgias, Pain (Multiple joint), No: Myalgias, Edema Skin: No Rash Neurologic: Positive: Weakness, No: Dizziness, Syncope, Focal Abnormalities, Coordination Problem Psychiatric: No: Anxiety Endocrine: Positive: Polyuria Hematologic/Lymphatic: No: Easy Bruising Physical Exam Narrative GENERAL: Well-developed well-nourished male no acute distress no respiratory distress SKIN: Warm and dry. HEAD: Normocephalic. EYES: No scleral icterus. No injection or drainage. NECK: Supple, trachea midline. No JVD or lymphadenopathy. CARDIOVASCULAR: Regular rate and rhythm without murmurs, gallops, or rubs. RESPIRATORY: Breath sounds equal bilaterally. No accessory muscle use. GASTROINTESTINAL: Abdomen soft, non-tender, nondistended. MUSCULOSKELETAL: No cyanosis, or edema. BACK: Nontender without obvious deformity. No CVA tenderness. Data Data Last Documented VS Vital Signs Date Time Temp Pulse Resp B/P (MAP) Pulse Ox O2 Delivery O2 Flow Rate FiO2 08/29/17 00:32 51 16 117/56 (76) 95 08/28/17 23:42 Room Air 08/28/17 21:09 98.0 Orders Orders Electrocardiogram (08/28/17 21:44) Complete Blood Count With Diff (08/28/17 21:44) Comprehensive Metabolic Panel (08/28/17 21:44) Magnesium (Mg) (08/28/17 21:44) Beta Hydroxybutyrate (Acetone) (08/28/17 21:44) Lactic Acid (08/28/17 21:44) Urinalysis - C+S If Indicated (08/28/17 21:44) Blood Culture (08/28/17 21:44) Chest, Single Ap (08/28/17 21:44) Blood Glucose (08/28/17 21:44) Ecg Monitoring (08/28/17 21:44) Iv Access Insert/Monitor (08/28/17 21:44) Oximetry (08/28/17 21:44) NPO (08/28/17 21:44) Sodium Chloride 0.9% Flush (Ns Flush) (08/28/17 21:45) Troponin I (08/28/17 21:44) Lipase (08/28/17 21:44) Sodium Chlor 0.9% 1000 Ml Inj (Ns 1000 M (08/28/17 22:00) Insulin Human Regular Inj (Novolin R Inj (08/28/17 22:00) Blood Glucose (08/28/17 23:12) Ketorolac Inj (Toradol Inj) (08/28/17 23:45) Ed Discharge Order (08/29/17 00:22) Labs Laboratory Tests Test 08/28/17 21:52 White Blood Count 4.7 TH/MM3 Red Blood Count 5.28 MIL/MM3 Hemoglobin 15.5 GM/DL Hematocrit 45.4 % Mean Corpuscular Volume 85.9 FL Mean Corpuscular Hemoglobin 29.4 PG Mean Corpuscular Hemoglobin Concent 34.2 % Red Cell Distribution Width 12.4 % Platelet Count 260 TH/MM3 Mean Platelet Volume 7.6 FL Neutrophils (%) (Auto) 56.5 % Lymphocytes (%) (Auto) 33.2 % Monocytes (%) (Auto) 7.2 % Eosinophils (%) (Auto) 2.6 % Basophils (%) (Auto) 0.5 % Neutrophils # (Auto) 2.7 TH/MM3 Lymphocytes # (Auto) 1.6 TH/MM3 Monocytes # (Auto) 0.3 TH/MM3 Eosinophils # (Auto) 0.1 TH/MM3 Basophils # (Auto) 0.0 TH/MM3 CBC Comment DIFF FINAL Differential Comment Urine Color YELLOW Urine Turbidity CLEAR Urine pH 5.5 Urine Specific [place] 1.010 Urine Protein NEG mg/dL Urine Glucose (UA) 1000 OR GREATER mg/dL Urine Ketones NEG mg/dL Urine Occult Blood NEG Urine Nitrite NEG Urine Bilirubin NEG Urine Urobilinogen 0.2 MG/DL Urine Leukocyte Esterase NEG Urine Squamous Epithelial Cells 0-5 /hpf Microscopic Urinalysis Comment CULT NOT INDICATED Blood Urea Nitrogen 13 MG/DL Creatinine 0.95 MG/DL Random Glucose 507 MG/DL Total Protein 7.2 GM/DL Albumin 3.8 GM/DL Calcium Level 8.8 MG/DL Magnesium Level 2.2 MG/DL Alkaline Phosphatase 109 U/L Aspartate Amino Transf (AST/SGOT) 20 U/L Alanine Aminotransferase (ALT/SGPT) 42 U/L Total Bilirubin 0.4 MG/DL Sodium Level 133 MEQ/L Potassium Level 4.0 MEQ/L Chloride Level 99 MEQ/L Carbon Dioxide Level 25.3 MEQ/L Anion Gap 9 MEQ/L Estimat Glomerular Filtration Rate 79 ML/MIN Lactic Acid Level 0.2 mmol/L Troponin I LESS THAN 0.02 NG/ML Lipase 158 U/L B-Hydroxybutyrate 0.25 MMOL/L [facility] Medical Decision Making Medical Screen Exam Complete: Yes Emergency Medical Condition: Yes Medical Record Reviewed: Yes Interpretation(s) EKG sinus bradycardia rate 55 left axis deviation nonspecific intraventricular conduction delay no acute ST elevation or injury pattern change noted troponin I: Less than 0.02, not elevated Lactic acid: 0.2, not elevated Beta hydroxybutyric acid: 0.25, not elevated Urinalysis: Glucosuria otherwise values in normal range Last Impressions Chest X-Ray 08/28/172143 Signed Impressions: Service Date/Time: Monday, August 28, 2017 22:17 - CONCLUSION: No acute disease. Supa Hurley MD CBC & BMP Diagram 08/28/17 21:52 Total Protein 7.2, Albumin 3.8, Calcium Level 8.8, Magnesium Level 2.2, Alkaline Phosphatase 109, Aspartate Amino Transf (AST/SGOT) 20, Alanine Aminotransferase (ALT/SGPT) 42, Total Bilirubin 0.4 Vital Signs Date Time Temp Pulse Resp B/P (MAP) Pulse Ox O2 Delivery O2 Flow Rate FiO2 08/28/17 23:42 57 18 144/73 (96) 95 Room Air 08/28/17 22:52 57 18 156/72 (100) 94 Room Air 08/28/17 22:00 57 18 94 Room Air 08/28/17 21:52 18 95 Room Air 08/28/17 21:52 57 18 166/73 (104) 95 Room Air 08/28/17 21:09 98.0 55 20 182/84 (116) 97 Differential Diagnosis Viral syndrome, influenza, sepsis, ACS, uncontrolled diabetes, hyperosmolar hyperglycemia, DKA, UTI Narrative Course IV access obtained specimens collections of resulting patient placed on quality assurance monitor final with continuous pulse oximetry Patient given bolus of normal saline as well as regular insulin IV 1 dose EKG sinus rhythm no acute ST elevation or injury pattern change noted Lab values found to be grossly normal range troponin I less than 0.02 white count normal without left shift chemistries within normal range lactic acid and serum acetone levels not elevated bicarb normal and anion gap within normal range Patient resting comfortably vital signs normalized Repeat blood sugar after IV fluids and insulin, 282 patient requests pain medication for " body aches" administered toradol 30 mg iv ; patient up out of bed ambulatory to the bathroom without apparent weakness, difficulty or antalgic movement/gait and in no distress; a second glucose at 2 hours (00:30)-- 253 Diagnosis Primary Impression: Diabetes mellitus with hyperglycemia Referrals: Primary Care Physician call for appointment Patient Instructions: General Instructions Additional Instructions: Increase fluid hydration Follow-up with your primary care provider/clinic call office in a.m. to schedule follow-up appointment Return to the emergency department for any concerns or change in condition Take chronic medications as chronically prescribed Take as tolerated ibuprofen/Advil/Motrin as needed for fever 100.4F or greater (avoid routine use) Med/Other Pt SpecificInfo: No Meds Exist/No RX given Disposition: 01 DISCHARGE HOME Condition: Stable Olinda Gilman MD August 28, 2017 22:09
[2017-08-28 22:10] LABS: SQUAMOUS EPITHELIAL CELL URINE 0-5 /hpf (0-5)
[2017-08-28 22:12] LABS: CHLORIDE 99 MEQ/L (98-107); SODIUM (NA) 133 MEQ/L (136-145)
[2017-08-28 22:15] LABS: ALBUMIN 3.8 GM/DL (3.4-5.0); BICARBONATE 25.3 MEQ/L (21.0-32.0); BLOOD UREA NITROGEN 13 MG/DL (7-18); CALCIUM 8.8 MG/DL (8.5-10.1)
[2017-08-28 22:16] LABS: MAGNESIUM 2.2 MG/DL (1.5-2.5)
[2017-08-28 22:19] LABS: CREATININE 0.95 MG/DL (0.60-1.30); GLOMERULAR FILTRATION RATE 79 ML/MIN (>89)
--- NOTE | 2017-08-28 22:35 | RADRPT ---
EXAM DATE/TIME: 08/28/2017 22:17 [facility] COMPARISON: CHEST SINGLE AP, January 02, 2017, 17:04. INDICATIONS : High blood pressure. MEDICAL HISTORY : Cardiovascular disease. Congestive heart failure. Gastroesophageal reflux disease. Diabetes. SURGICAL HISTORY : Coronary artery stent. ENCOUNTER: Initial ACUITY: 1 day PAIN SCORE: 0/10 LOCATION: Bilateral chest FINDINGS: No evidence of focal infiltrate or pleural effusion. Cardiac contours are satisfactory for technique and projection. CONCLUSION: No acute disease. Supa Hurley MD on August 28, 2017 at 22:31 Board Certified Radiologist. This report was verified electronically.
[2017-08-28 22:40] LABS: ALKALINE PHOSPHATASE 109 U/L (45-117); TOTAL BILIRUBIN ADULT 0.4 MG/DL (0.2-1.0); TROPONIN I LESS THAN 0.02 NG/ML (0.02-0.05)
[2017-08-28 22:45] LABS: GLUCOSE,RANDOM 507 MG/DL (74-106)
[2017-08-28 22:46] LABS: ALT (GPT) 42 U/L (12-78); AST (GOT) 20 U/L (15-37); TOTAL PROTEIN 7.2 GM/DL (6.4-8.2)
[2017-08-28 22:52] VITALS: BP 156/72; PULSE 57; RESP 18; O2SAT 94
[2017-08-28 23:42] VITALS: BP 144/73; PULSE 57; RESP 18; O2SAT 95
[2017-08-28] MEDS ORDERED: KETOROLAC TROMETHAMINE 30 MG/ML (IVP) VIAL IV PUSH ONE (23:45)
[2017-08-29 00:32] VITALS: BP 117/56
--- NOTE | 2017-08-29 22:25 | EKG ---
Date Performed: 08/28/2017 Time Performed: 21:57:56 PTAGE: 66 years EKG: SINUS BRADYCARDIA BORDERLINE LEFT AXIS DEVIATION MODERATE INTRAVENTRICULAR CONDUCTION DELAY NONSPECIFIC T-WAVE ABNORMALITY BORDERLINE ECG PREVIOUS TRACING : 01/03/2017 00.36 Compared to previous tracing, sinus bradycardia is new DOCTOR: Minor Dove Interpretating Date/Time 08/29/2017 22:22:57
== END 2017-08-29 00:44 | disposition home or self-care (01) ==
LOC: PHED 20:58
DX: E11.65 Type 2 diabetes mellitus with hyperglycemia (principal); R94.31 Abnormal electrocardiogram [ECG] [EKG]; E78.5 Hyperlipidemia, unspecified; I11.0 Hypertensive heart disease with heart failure; I50.9 Heart failure, unspecified; I25.10 Atherosclerotic heart disease of native coronary artery without angina pectoris; J44.9 Chronic obstructive pulmonary disease, unspecified; Z86.73 Personal history of transient ischemic attack (TIA), and cerebral infarction without residual deficits; Z72.0 Tobacco use
CPT/HCPCS: 71045; 80053; 81001; 82010; 83605; 83690; 83735; 84484; 85025; 87040; 93005; 96361; 96374; 96375; 99285; J1815; J1885; J7030

== ENCOUNTER 2017-10-14 18:49 | Inpatient (IN) ==
[2017-10-14] MEDS ORDERED: Morphine Sulfate Inj 2 MG/ML Vial IV.PUSH ONE (19:18)
--- NOTE | 2017-10-14 19:29 | ED ---
HPI General Chief Complaint: Chest Pain Stated Complaint: Chest Pain Time Seen by Provider: 10/14/17 19:10 Source: patient Mode of arrival: ambulatory Limitations: no limitations History of Present Illness HPI narrative: 66 years old male complained of chest pain and shortness of breath. 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 Patient with generalized malaise and weakness. Patient states the chest pain pressure pain localized to left chest. Patient denies any pain radiation. Patient denies palpitation nausea diaphoresis. Patient denies any headache. Patient denies abdominal pain. Patient denies any focal weakness or numbness of the extremity. Patient is on aspirin 81 mg daily and Plavix. Patient also has history of COPD, GERD, diabetes status post CVA. On a scale of 1-10 the chest pain is a 7.Patient states that he had 2 stent placement in 2017 and 2 stent placement in 2009 also. Patient also had stent placement in the groin area. MD complaint: chest pain Complete Quality Measures for STEMI Alert Patients STEMI Alert: No Onset (ago): day(s) Duration: constant Onset: during rest Pain location: left chest Severity: moderate Severity scale (1-10): 7 Quality: aching and heaviness Pain radiation: none Relieving factors: nothing Exacerbating factors: nothing Context: recent surgery Associated symptoms: dyspnea Treatments prior to arrival chest pain: none Related Data Home Medications Medication Instructions Recorded Confirmed aspirin [Aspir-81] 81 mg PO DAILY 10/14/17 10/14/17 clopidogrel 75 mg PO DAILY 10/14/17 10/14/17 fenofibrate [Lipofen] 100 mg PO DAILY 10/14/17 10/14/17 glipizide 5 mg PO BID 10/14/17 10/14/17 pantoprazole 40 mg PO DAILY 10/14/17 10/14/17 Previous Rx's Medication Instructions Recorded atorvastatin 40 mg PO HS #30 tab 10/15/17 metoprolol tartrate 12.5 mg PO BID #60 tab 10/15/17 Allergies Allergy/AdvReac Type Severity Reaction Status Date / Time codeine Allergy Severe Itching Verified 10/14/17 19:26 hydrocodone Allergy Intermediate itching Verified 10/14/17 19:25 and swelling ticagrelor AdvReac Severe VOMITING, Verified 10/14/17 19:30 CRAMPS Review of Systems Except as stated in HPI: all other systems reviewed are negative PMFSH History History Provided By: Patient Medical History Medical History COPD (chronic obstructive pulmonary disease) (Acute) Chest pain (Acute) Coronary artery disease (Acute) Diabetes (Acute) GERD (gastroesophageal reflux disease) (Acute) Stroke (Acute) Surgical History Surgical History Hx of cardiac cath (Acute) Hx of cardiac cath (Acute) Stented coronary artery (Acute) Family History Family History Father Heart disease Mother Heart disease Social History Social History Substance History: No History of Abuse Second Hand Smoke Exposure: No Smoking Status: Former smoker Tobacco Type: Cigarettes How Often Do You Have a Drink Containing Alcohol: Never Recent Out of Country Travel within the Last 8 Weeks: No Exam Narrative Exam Narrative: GENERAL: Well-nourished, well-developed patient. SKIN: Focused skin assessment warm/dry. HEAD: Normocephalic. EYES: No scleral icterus. No injection or drainage. NECK: Supple, trachea midline. No JVD or lymphadenopathy. CARDIOVASCULAR: Regular rate and rhythm without murmurs, gallops, or rubs. RESPIRATORY: Breath sounds equal bilaterally. No accessory muscle use. GASTROINTESTINAL: Abdomen soft, non-tender, nondistended. MUSCULOSKELETAL: No cyanosis, or edema. BACK: Nontender without obvious deformity. No CVA tenderness. Neurologic exam: Patient with drowsiness however answer questions appropriately. Patient moves all extremity well. No obvious focal neurological deficit. Course Hospital Course: Chest x-ray show no acute consolidation. Cardiac enzymes are normal. CT pulmonary antrum negative for PE. EKG shows sinus rhythm nonspecific ST-T wave change. Cardiac enzymes are normal. CT 8 negative for PE. Chest x-ray is normal. Initial Documented Vital Signs Temperature 97.9 F 10/14/17 19:03 Pulse Rate 68 10/14/17 19:03 Respiratory Rate 26 H 10/14/17 19:03 Blood Pressure 177/94 H 10/14/17 19:03 Pulse Oximetry 97 10/14/17 19:03 Last Documented Vital Signs Temperature 98 F 10/15/17 16:00 Pulse Rate 62 10/15/17 16:00 Respiratory Rate 16 10/15/17 16:00 Blood Pressure 134/74 10/15/17 16:00 Pulse Oximetry 96 10/15/17 12:00 Medical Decision Making MDM Narrative Medical decision making narrative: I spoke with Dr. Perla, quality assurance coach supervisor telephone information. Advise admission with heparin bolus and drip to [facility] at the main hospital. Differential Diagnosis Differential Diagnosis: Differential diagnosis including pneumothorax, hemothorax, pulmonary embolus, angina, ND, musculoskeletal. Lab Data Result diagrams: 10/15/17 06:12 10/15/17 06:12 Lab Results 10/14/17 10/14/17 10/14/17 Range/Units 19:00 19:00 19:00 CBC w Diff Auto diff final WBC 5.5 (4.0-11.0) th/mm3 RBC 5.52 (4.50-5.90) mil/mm3 Hgb 15.9 (13.0-17.0) gm/dL Hct 48.5 (39.0-51.0) % MCV 87.8 (80.0-100.0) fL MCH 28.8 (27.0-34.0) pg MCHC 32.8 (32.0-36.0) % RDW 12.8 (11.6-17.2) % Plt Count 351 (150-450) th/mm3 MPV 7.7 (7.0-11.0) fL Neut % (Auto) 59.0 (16.0-70.0) % Lymph % (Auto) 29.6 (9.0-44.0) % Lamar % (Auto) 7.0 (0.0-8.0) % Eos % (Auto) 3.2 (0.0-4.0) % Baso % (Auto) 1.2 (0.0-2.0) % Neut # (Auto) 3.2 (1.8-7.7) th/mm3 Lymph # (Auto) 1.6 (1.0-4.8) th/mm3 Lamar # (Auto) 0.4 (0.0-0.9) th/mm3 Eos # (Auto) 0.2 (0.0-0.4) th/mm3 Baso # (Auto) 0.1 (0.0-0.2) th/mm3 WBC Differential . PT 9.9 (9.8-11.6) sec INR 1.0 Ratio APTT 24.9 (24.3-30.1) sec Sodium 137 (136-145) meq/L Potassium 4.0 (3.5-5.1) meq/L Chloride 105 (98-107) meq/L Carbon Dioxide 20.9 L (21.0-32.0) meq/L Anion Gap 11 (5-15) meq/L BUN 17 (7-18) mg/dL Creatinine 0.95 (0.60-1.30) mg/dL Estimated GFR 79 L (>89) mL/min POC Glucose (68-110) mg/dl Random Glucose 337 H (74-106) mg/dL Calcium 8.9 (8.5-10.1) mg/dL Total Bilirubin 0.5 (0.2-1.0) mg/dL AST 27 (15-37) U/L ALT 36 (12-78) U/L Alkaline Phosphatase 99 (45-117) U/L Total Creatine Kinase 72 (39-308) U/L Troponin I Less than 0.02 L (0.02-0.05) ng/mL B-Natriuretic Peptide (0-100) pg/mL Total Protein 7.3 (6.4-8.2) g/dL Albumin 3.9 (3.4-5.0) g/dL Triglycerides (42-150) mg/dL Cholesterol (120-200) mg/dL LDL Cholesterol, Calc (0-99) mg/dL HDL Cholesterol (40.0-60.0) mg/dL Cholesterol/HDL Ratio Ratio 10/14/17 10/15/17 10/15/17 Range/Units 19:00 00:05 06:12 CBC w Diff Auto diff final WBC 4.6 (4.0-11.0) th/mm3 RBC 4.73 (4.50-5.90) mil/mm3 Hgb 14.3 (13.0-17.0) gm/dL Hct 40.7 (39.0-51.0) % MCV 86.0 (80.0-100.0) fL MCH 30.3 (27.0-34.0) pg MCHC 35.2 (32.0-36.0) % RDW 13.9 (11.6-17.2) % Plt Count 268 (150-450) th/mm3 MPV 7.6 (7.0-11.0) fL Neut % (Auto) 51.5 (16.0-70.0) % Lymph % (Auto) 36.4 (9.0-44.0) % Lamar % (Auto) 7.5 (0.0-8.0) % Eos % (Auto) 3.3 (0.0-4.0) % Baso % (Auto) 1.3 (0.0-2.0) % Neut # (Auto) 2.4 (1.8-7.7) th/mm3 Lymph # (Auto) 1.7 (1.0-4.8) th/mm3 Lamar # (Auto) 0.3 (0.0-0.9) th/mm3 Eos # (Auto) 0.2 (0.0-0.4) th/mm3 Baso # (Auto) 0.1 (0.0-0.2) th/mm3 WBC Differential . PT (9.8-11.6) sec INR Ratio APTT (24.3-30.1) sec Sodium (136-145) meq/L Potassium (3.5-5.1) meq/L Chloride (98-107) meq/L Carbon Dioxide (21.0-32.0) meq/L Anion Gap (5-15) meq/L BUN (7-18) mg/dL Creatinine (0.60-1.30) mg/dL Estimated GFR (>89) mL/min POC Glucose (68-110) mg/dl Random Glucose (74-106) mg/dL Calcium (8.5-10.1) mg/dL Total Bilirubin (0.2-1.0) mg/dL AST (15-37) U/L ALT (12-78) U/L Alkaline Phosphatase (45-117) U/L Total Creatine Kinase (39-308) U/L Troponin I Less than 0.02 L (0.02-0.05) ng/mL B-Natriuretic Peptide 7 (0-100) pg/mL Total Protein (6.4-8.2) g/dL Albumin (3.4-5.0) g/dL Triglycerides (42-150) mg/dL Cholesterol (120-200) mg/dL LDL Cholesterol, Calc (0-99) mg/dL HDL Cholesterol (40.0-60.0) mg/dL Cholesterol/HDL Ratio Ratio 10/15/17 10/15/17 10/15/17 Range/Units 06:12 06:12 06:12 CBC w Diff WBC (4.0-11.0) th/mm3 RBC (4.50-5.90) mil/mm3 Hgb (13.0-17.0) gm/dL Hct (39.0-51.0) % MCV (80.0-100.0) fL MCH (27.0-34.0) pg MCHC (32.0-36.0) % RDW (11.6-17.2) % Plt Count (150-450) th/mm3 MPV (7.0-11.0) fL Neut % (Auto) (16.0-70.0) % Lymph % (Auto) (9.0-44.0) % Lamar % (Auto) (0.0-8.0) % Eos % (Auto) (0.0-4.0) % Baso % (Auto) (0.0-2.0) % Neut # (Auto) (1.8-7.7) th/mm3 Lymph # (Auto) (1.0-4.8) th/mm3 Lamar # (Auto) (0.0-0.9) th/mm3 Eos # (Auto) (0.0-0.4) th/mm3 Baso # (Auto) (0.0-0.2) th/mm3 WBC Differential PT (9.8-11.6) sec INR Ratio APTT 33.8 H D (24.3-30.1) sec Sodium 138 (136-145) meq/L Potassium 3.9 (3.5-5.1) meq/L Chloride 105 (98-107) meq/L Carbon Dioxide 22.0 (21.0-32.0) meq/L Anion Gap 11 (5-15) meq/L BUN 13 (7-18) mg/dL Creatinine 0.70 (0.60-1.30) mg/dL Estimated GFR Greater than 89 (>89) mL/min POC Glucose (68-110) mg/dl Random Glucose 308 H (74-106) mg/dL Calcium 8.6 (8.5-10.1) mg/dL Total Bilirubin 0.4 (0.2-1.0) mg/dL AST 21 (15-37) U/L ALT 32 (12-78) U/L Alkaline Phosphatase 71 (45-117) U/L Total Creatine Kinase (39-308) U/L Troponin I Less than 0.02 L (0.02-0.05) ng/mL B-Natriuretic Peptide (0-100) pg/mL Total Protein 6.1 L D (6.4-8.2) g/dL Albumin 3.4 (3.4-5.0) g/dL Triglycerides 894 H (42-150) mg/dL Cholesterol 154 (120-200) mg/dL LDL Cholesterol, Calc (0-99) mg/dL HDL Cholesterol 18.9 L (40.0-60.0) mg/dL Cholesterol/HDL Ratio 8.14 Ratio 10/15/17 10/15/17 10/15/17 Range/Units 06:12 07:54 11:48 CBC w Diff WBC (4.0-11.0) th/mm3 RBC (4.50-5.90) mil/mm3 Hgb (13.0-17.0) gm/dL Hct (39.0-51.0) % MCV (80.0-100.0) fL MCH (27.0-34.0) pg MCHC (32.0-36.0) % RDW (11.6-17.2) % Plt Count (150-450) th/mm3 MPV (7.0-11.0) fL Neut % (Auto) (16.0-70.0) % Lymph % (Auto) (9.0-44.0) % Lamar % (Auto) (0.0-8.0) % Eos % (Auto) (0.0-4.0) % Baso % (Auto) (0.0-2.0) % Neut # (Auto) (1.8-7.7) th/mm3 Lymph # (Auto) (1.0-4.8) th/mm3 Lamar # (Auto) (0.0-0.9) th/mm3 Eos # (Auto) (0.0-0.4) th/mm3 Baso # (Auto) (0.0-0.2) th/mm3 WBC Differential PT (9.8-11.6) sec INR Ratio APTT (24.3-30.1) sec Sodium (136-145) meq/L Potassium (3.5-5.1) meq/L Chloride (98-107) meq/L Carbon Dioxide (21.0-32.0) meq/L Anion Gap (5-15) meq/L BUN (7-18) mg/dL Creatinine (0.60-1.30) mg/dL Estimated GFR (>89) mL/min POC Glucose 284 H 276 H 247 H (68-110) mg/dl Random Glucose (74-106) mg/dL Calcium (8.5-10.1) mg/dL Total Bilirubin (0.2-1.0) mg/dL AST (15-37) U/L ALT (12-78) U/L Alkaline Phosphatase (45-117) U/L Total Creatine Kinase (39-308) U/L Troponin I (0.02-0.05) ng/mL B-Natriuretic Peptide (0-100) pg/mL Total Protein (6.4-8.2) g/dL Albumin (3.4-5.0) g/dL Triglycerides (42-150) mg/dL Cholesterol (120-200) mg/dL LDL Cholesterol, Calc (0-99) mg/dL HDL Cholesterol (40.0-60.0) mg/dL Cholesterol/HDL Ratio Ratio //18 Range/Units 15:35 CBC w Diff WBC (4.0-11.0) th/mm3 RBC (4.50-5.90) mil/mm3 Hgb (13.0-17.0) gm/dL Hct (39.0-51.0) % MCV (80.0-100.0) fL MCH (27.0-34.0) pg MCHC (32.0-36.0) % RDW (11.6-17.2) % Plt Count (150-450) th/mm3 MPV (7.0-11.0) fL Neut % (Auto) (16.0-70.0) % Lymph % (Auto) (9.0-44.0) % Lamar % (Auto) (0.0-8.0) % Eos % (Auto) (0.0-4.0) % Baso % (Auto) (0.0-2.0) % Neut # (Auto) (1.8-7.7) th/mm3 Lymph # (Auto) (1.0-4.8) th/mm3 Lamar # (Auto) (0.0-0.9) th/mm3 Eos # (Auto) (0.0-0.4) th/mm3 Baso # (Auto) (0.0-0.2) th/mm3 WBC Differential PT (9.8-11.6) sec INR Ratio APTT 85.0 H D (24.3-30.1) sec Sodium (136-145) meq/L Potassium (3.5-5.1) meq/L Chloride (98-107) meq/L Carbon Dioxide (21.0-32.0) meq/L Anion Gap (5-15) meq/L BUN (7-18) mg/dL Creatinine (0.60-1.30) mg/dL Estimated GFR (>89) mL/min POC Glucose (68-110) mg/dl Random Glucose (74-106) mg/dL Calcium (8.5-10.1) mg/dL Total Bilirubin (0.2-1.0) mg/dL AST (15-37) U/L ALT (12-78) U/L Alkaline Phosphatase (45-117) U/L Total Creatine Kinase (39-308) U/L Troponin I (0.02-0.05) ng/mL B-Natriuretic Peptide (0-100) pg/mL Total Protein (6.4-8.2) g/dL Albumin (3.4-5.0) g/dL Triglycerides (42-150) mg/dL Cholesterol (120-200) mg/dL LDL Cholesterol, Calc (0-99) mg/dL HDL Cholesterol (40.0-60.0) mg/dL Cholesterol/HDL Ratio Ratio Imaging Data Radiologist's impression: ITS Impressions Chest X-Ray 10/14/17 19:10 CONCLUSION: Negative examination. Chest CTA 10/14/17 19:17 CONCLUSION: 1. No evidence of pulmonary embolism. 2. Markedly enlarged heart. 3. Posterior bibasilar atelectasis. 4. Hepatomegaly. Discharge Plan Discharge Disposition Patient Disposition: 30 Still Patient Discharge Condition Condition: Stable Discharge Order Discharge Orders: Cardiology Clear for Discharge (Routine); Ordered 10/15/17 Ordered By: Milton Perla Discharge Details Anticipated Discharge Date: 10/15/17 Discharge Problem: Chest pain Physicians Team ED Provider: Justin Romero Primary Care Provider: NON STAFF,PROVIDER Attending Provider: Mamadou Wiseman Discharge Interventions Interventions: ED Discharge Assessment Last Done: 10/15/17 04:19 Vital Signs Last Done: 10/15/17 04:19 Status ED Status: Left Department Discharge Information Discharge Date/Time: 10/15/17 03:00
[2017-10-14 19:30] LABS: Baso # (Auto) 0.1 th/mm3 (0.0-0.2); Baso % (Auto) 1.2 % (0.0-2.0); Eos # (Auto) 0.2 th/mm3 (0.0-0.4); Eos % (Auto) 3.2 % (0.0-4.0); Hematocrit 48.5 % (39.0-51.0); Hemoglobin 15.9 gm/dL (13.0-17.0); Lymph # (Auto) 1.6 th/mm3 (1.0-4.8); Lymph % (Auto) 29.6 % (9.0-44.0); Mean Corpuscular HGB Conc 32.8 % (32.0-36.0); Mean Corpuscular Hemoglobin 28.8 pg (27.0-34.0); Mean Corpuscular Volume 87.8 fL (80.0-100.0); Mean Platelet Volume 7.7 fL (7.0-11.0); Mono # (Auto) 0.4 th/mm3 (0.0-0.9); Neut # (Auto) 3.2 th/mm3 (1.8-7.7); Platelet Count 351 th/mm3 (150-450); Red Blood Count 5.52 mil/mm3 (4.50-5.90); Red Cell Distribution Width 12.8 % (11.6-17.2); White Blood Count 5.5 th/mm3 (4.0-11.0)
[2017-10-14] MEDS: Sod Chloride 0.9% Inj 1,000 ML IV.CONT SCH (19:32)
--- NOTE | 2017-10-14 19:38 | XR ---
EXAM DATE: 10/14/2017 7:29 PM EDT AGE/SEX: 66 years / Male INDICATIONS: Chest pain. CLINICAL DATA: This is the patient's initial encounter. Patient reports that signs and symptoms have been present for 1 day and indicates a pain score of 8/10. MEDICAL/SURGICAL HISTORY: Chronic obstructive pulmonary disease. Cardiovascular disease. Coron kerry artery stent. COMPARISON: No prior exams available for comparison. FINDINGS: A single AP view of the chest demonstrates the lungs to be symmetrically aerated without evidence of mass, infiltrate or effusion. The cardiomediastinal contours are unremarkable. Osseous structures a re intact. CONCLUSION: Negative examination. Electronically signed by: Yannick Cr MD 10/14/2017 7:36 PM EDT
[2017-10-14 19:47] LABS: Chloride 105 meq/L (98-107); Sodium 137 meq/L (136-145)
[2017-10-14 19:50] LABS: Calcium 8.9 mg/dL (8.5-10.1)
[2017-10-14 19:51] LABS: Albumin 3.9 g/dL (3.4-5.0); Anion Gap 11 meq/L (5-15); Blood Urea Nitrogen 17 mg/dL (7-18); Carbon Dioxide 20.9 meq/L (21.0-32.0); Glucose,Random 337 mg/dL (74-106)
[2017-10-14 19:54] LABS: Aspartate Aminotransferase 27 U/L (15-37); Glomerular Filtration Rate 79 mL/min (>89)
[2017-10-14 19:56] LABS: Total Protein 7.3 g/dL (6.4-8.2)
[2017-10-14 19:57] LABS: Alkaline Phosphatase 99 U/L (45-117)
[2017-10-14 19:59] LABS: Activated Partial Thrombo Time 24.9 sec (24.3-30.1); Creatine Kinase 72 U/L (39-308); Prothrombin Time 9.9 sec (9.8-11.6)
[2017-10-14 20:00] LABS: Alanine Aminotransferase 36 U/L (12-78)
[2017-10-14] MEDS ORDERED: Heparin 10,000 UNITS/10 ML Vial (for IV use) IV.PUSH STA (21:25)
[2017-10-14] MEDS ORDERED: Heparin Drip 25,000 UNIT/250 ML BAG IV.CONT PRN (21:25)
[2017-10-14] MEDS ORDERED: Dextrose 50% in Water 50 ML Vial IV.PUSH PRN (21:34)
[2017-10-14] MEDS ORDERED: Bisacodyl 10 MG Supp RECTAL PRN (21:35)
[2017-10-14] MEDS ORDERED: Acetaminophen 325 MG Tablet PO PRN (21:35)
[2017-10-14] MEDS ORDERED: Morphine Sulfate Inj 2 MG/ML Vial IV.PUSH PRN (21:37)
[2017-10-14] MEDS ORDERED: Sod Chloride 0.9% Inj 1,000 ML IV.CONT SCH (21:45)
[2017-10-15] MEDS ORDERED: Morphine Inj 4 MG/ML Vial IV.PUSH PRN (04:30)
[2017-10-15] MEDS: Sod Chloride 0.9% Inj 1,000 ML IV.CONT SCH ×2 (04:36→15:00)
[2017-10-15 07:16] LABS: Baso # (Auto) 0.1 th/mm3 (0.0-0.2); Baso % (Auto) 1.3 % (0.0-2.0); Eos # (Auto) 0.2 th/mm3 (0.0-0.4); Eos % (Auto) 3.3 % (0.0-4.0); Hematocrit 40.7 % (39.0-51.0); Hemoglobin 14.3 gm/dL (13.0-17.0); Lymph # (Auto) 1.7 th/mm3 (1.0-4.8); Lymph % (Auto) 36.4 % (9.0-44.0); Mean Corpuscular HGB Conc 35.2 % (32.0-36.0); Mean Corpuscular Hemoglobin 30.3 pg (27.0-34.0); Mean Platelet Volume 7.6 fL (7.0-11.0); Mono # (Auto) 0.3 th/mm3 (0.0-0.9); Mono % (Auto) 7.5 % (0.0-8.0); Neut # (Auto) 2.4 th/mm3 (1.8-7.7); Neut % (Auto) 51.5 % (16.0-70.0); Platelet Count 268 th/mm3 (150-450); Red Blood Count 4.73 mil/mm3 (4.50-5.90); Red Cell Distribution Width 13.9 % (11.6-17.2); White Blood Count 4.6 th/mm3 (4.0-11.0)
[2017-10-15 07:45] LABS: Alkaline Phosphatase 71 U/L (45-117)
[2017-10-15] MEDS ORDERED: Insulin NovoLOG Aspart Correctional Sugar Inj SQ SCH (08:00)
--- NOTE | 2017-10-15 08:44 | P.CONCA ---
<Soham Llanos - Last Filed: 10/15/17 08:36> History of Present Illness Primary Care Provider: PROVIDER NON STAFF Family Provider: UNKNOWN History of Present Illness: 66-year-old male with a past medical history of CAD with multiple stenting in the past, HLD, DM, GERD. The patient states that he had 2 stents placed by his improvement nurse in [place] 1 week ago. He states he was having chest pain at rest at that time. He states that 2 days ago and then yesterday he had recurrence of the same type of chest pain. Described as midsternal with no radiation, sharp and dull sensation, nonexertional. He states pain was 9/10 in severity yesterday which is why he presented to the ED. Some less severe episodes of chest pain overnight, chest pain-free currently. EKG with evidence of age-indeterminate inferior NH, similar to previous EKG 08/2017. Troponin 0 0.023. On heparin GTT. Review of Systems All other systems reviewed negative except as stated in HPI PMFSH - History History Provided By: Patient - Medical History Medical History: Medical History (Last Reviewed 10/14/17 @ 19:28 by Justin Romero MD) COPD (chronic obstructive pulmonary disease) Chest pain Coronary artery disease Diabetes GERD (gastroesophageal reflux disease) Stroke - Surgical History Surgical History: Surgical History (Last Updated 10/14/17 @ 19:38 by Adenike Ramirez) Hx of cardiac cath Hx of cardiac cath Stented coronary artery - Family History Family History: Family History (Last Updated 10/15/17 @ 08:42 by KYRIE Wise) Father Heart disease Mother Heart disease - Tobacco History Second Hand Smoke Exposure: No Tobacco Use In Past 30 Days: No Smoking Status: Former smoker Tobacco Type: Cigarettes - Alcohol History How Often Do You Have a Drink Containing Alcohol: Never - Substance Use History Substance History: No History of Abuse - Travel History Recent Travel Out of the Country Within the Last 8 Weeks: No - Immunization History Tetanus Immunization: Unsure Hx Influenza Vaccine This Season: No Medications and Allergies Allergies Allergy/AdvReac Type Severity Reaction Status Date / Time codeine Allergy Severe Itching Verified 10/14/17 19:26 hydrocodone Allergy Intermediate itching Verified 10/14/17 19:25 and swelling ticagrelor AdvReac Severe VOMITING, Verified 10/14/17 19:30 CRAMPS Home Medications Medication Instructions Recorded Confirmed Type aspirin [Aspir-81] 81 mg PO DAILY 10/14/17 10/14/17 History clopidogrel 75 mg PO DAILY 10/14/17 10/14/17 History fenofibrate [Lipofen] 100 mg PO DAILY 10/14/17 10/14/17 History glipizide 5 mg PO BID 10/14/17 10/14/17 History pantoprazole 40 mg PO DAILY 10/14/17 10/14/17 History Active Medications: Active Medications Acetaminophen (Tylenol) 650 mg PO Q4H PRN PRN Reason: Temp > 100.4 Last Admin: 10/15/17 07:46 Dose: 650 mg Al Hydroxide/Mg Hydroxide (Milk Of Magnesia Liq) 30 ml PO Q12H PRN PRN Reason: Mild Constipation Aspirin (Ecotrin) 81 mg PO DAILY [facility] Bisacodyl (Dulcolax Supp) 10 mg RECTAL DAILY PRN PRN Reason: SEVERE CONSITIPATION Dextrose (D50w Vial) 50 ml IV.PUSH UNSCH PRN PRN Reason: PER HYPOGLYCEMIA PROTOCOL Glucagon (Glucagon Inj) 1 mg OTHER PRN PRN PRN Reason: for Hypoglycemia Protocol Sodium Chloride (Ns Inj) 1,000 mls @ 100 mls/hr IV.CONT .Q10H [facility] Last Admin: 10/15/17 04:36 Dose: 100 mls/hr Heparin Sodium/Dextrose (Heparin/D5w 25,000 U/250 Ml) 25,000 unit in 250 mls @ 0 mls/hr IV.CONT TITRATE PRN; Protocol PRN Reason: Per Protocol Last Titration: 10/15/17 07:17 Dose: 900 units/hr, 9 mls/hr Sodium Chloride (Ns Inj) 1,000 mls @ 100 mls/hr IV.CONT .Q10H [facility] Insulin Aspart (Novolog Insulin Suppl Scale Inj) 0 unit SQ ACHS [facility]; Protocol Lactulose (Lactulose Liq) 30 ml PO DAILY PRN PRN Reason: SEVERE CONSITIPATION Metoclopramide HCl (Reglan Inj) 5 mg IV.PUSH Q6HR PRN; Protocol PRN Reason: NAUSEA OR VOMITING Morphine Sulfate (Morphine Inj) 2 mg IV.PUSH Q3H PRN PRN Reason: PAIN 6-10 Nitroglycerin (Nitro-Bid 2% Oint) 0.5 inch TOPICAL Q6HR PRN PRN Reason: CHEST PAIN Pantoprazole Sodium (Protonix) 40 mg PO DAILY [facility] Senna/Docusate Sodium (Symone-Colace) 1 tab PO BID [facility] Sennosides (Senokot) 17.2 mg PO Q12H PRN PRN Reason: Moderate Constipation Exam Vital signs: Vital Signs 10/14/17 19:03 10/14/17 19:49 10/14/17 20:47 Temperature 97.9 F Pulse Rate 68 66 Respiratory Rate 26 H 20 20 Blood Pressure 177/94 H 157/62 H 132/72 Pulse Oximetry 97 97 96 10/14/17 21:00 10/14/17 22:00 10/15/17 00:00 Temperature 97.6 F Pulse Rate 63 Respiratory Rate 20 20 Blood Pressure 136/74 149/79 H 118/56 L Pulse Oximetry 97 98 97 10/15/17 02:00 10/15/17 04:19 10/15/17 05:00 Temperature Pulse Rate 88 56 L Respiratory Rate 20 Blood Pressure 94/43 L 96/53 L Pulse Oximetry 97 97 10/15/17 05:42 10/15/17 08:00 Temperature 97.6 F 97.6 F Pulse Rate 62 57 L Respiratory Rate 18 Blood Pressure 120/73 115/53 L Pulse Oximetry 95 98 Intake & Output 10/14/17 10/15/17 10/15/17 18:59 06:59 18:59 Intake Total 1000 / 1000 Output Total 1050 / 1050 Balance -50 / -50 Weight 153 lb 0.013 oz Intake: IV 1000 / 1000 NS Inj 1,000 ML @ 100 mls/hr IV 1000 / 1000 .CONT .Q10H [facility] Rx#:[id number] Oral 0 / 0 Output: Urine 1050 / 1050 Other: # Voids 2 Narrative: GENERAL: Well-developed well-nourished. In no acute distress. NECK: No carotid bruits. No JVD. CARDIOVASCULAR: Regular rate and rhythm. No murmur appreciated. RESPIRATORY: No accessory muscle use. Clear to auscultation. Breath sounds equal bilaterally. MUSCULOSKELETAL: No clubbing or cyanosis. No edema. NEUROLOGICAL: Awake and alert. Normal speech. Results 10/15/17 06:12 10/14/17 19:00 Cardiac Enzymes 10/14/17 10/14/17 10/15/17 Range/Units 19:00 19:00 00:05 AST 27 (15-37) U/L Troponin I Less than 0.02 L Less than 0.02 L (0.02-0.05) ng/mL B-Natriuretic Peptide 7 (0-100) pg/mL 10/15/17 Range/Units 06:12 AST (15-37) U/L Troponin I Less than 0.02 L (0.02-0.05) ng/mL B-Natriuretic Peptide (0-100) pg/mL Coagulation 10/14/17 10/14/17 10/15/17 Range/Units 19:00 19:00 06:12 PT 9.9 (9.8-11.6) sec APTT 24.9 33.8 H D (24.3-30.1) sec B-Natriuretic Peptide 7 (0-100) pg/mL CBC 10/14/17 10/15/17 Range/Units 19:00 06:12 WBC 5.5 4.6 (4.0-11.0) th/mm3 RBC 5.52 4.73 (4.50-5.90) mil/mm3 Hgb 15.9 14.3 (13.0-17.0) gm/dL Hct 48.5 40.7 (39.0-51.0) % Plt Count 351 268 (150-450) th/mm3 Neut # (Auto) 3.2 2.4 (1.8-7.7) th/mm3 Lymph # (Auto) 1.6 1.7 (1.0-4.8) th/mm3 Stearns # (Auto) 0.4 0.3 (0.0-0.9) th/mm3 Eos # (Auto) 0.2 0.2 (0.0-0.4) th/mm3 Baso # (Auto) 0.1 0.1 (0.0-0.2) th/mm3 Comprehensive Metabolic Panel 10/14/17 10/15/17 Range/Units 19:00 06:12 Sodium 137 (136-145) meq/L Potassium 4.0 (3.5-5.1) meq/L Chloride 105 (98-107) meq/L Carbon Dioxide 20.9 L (21.0-32.0) meq/L BUN 17 (7-18) mg/dL Creatinine 0.95 (0.60-1.30) mg/dL Calcium 8.9 (8.5-10.1) mg/dL AST 27 (15-37) U/L ALT 36 (12-78) U/L Alkaline Phosphatase 99 71 (45-117) U/L Total Protein 7.3 (6.4-8.2) g/dL Albumin 3.9 (3.4-5.0) g/dL Intake and Output 10/14/17 10/15/17 10/15/17 22:59 06:59 14:59 Intake Total 1000 / 1000 Output Total 1050 / 1050 Balance -50 / -50 Intake: IV 1000 / 1000 NS Inj 1,000 ML @ 100 mls/hr IV 1000 / 1000 .CONT .Q10H [facility] Rx#:[id number] Oral 0 / 0 Output: Urine 1050 / 1050 Other: # Voids 2 Weight 153 lb 153 lb 0.013 oz Assessment and Plan - Plan 66-year-old male with a past medical history of CAD with multiple stenting in the past, HLD, DM, GERD. The patient states that he had 2 stents placed by his improvement nurse in [place] 1 week ago. He states he was having chest pain at rest at that time. He states that 2 days ago and then yesterday he had recurrence of the same type of chest pain. Described as midsternal with no radiation, sharp and dull sensation, nonexertional. He states pain was 9/10 in severity yesterday which is why he presented to the ED. EKG with evidence of age-indeterminate inferior NH, similar to previous EKG 08/2017. Troponin 0 0.02 3. Chest pain with recent cardiac stenting: Keep n.p.o. for [facility] today. Continue heparin GTT for now. Continue aspirin. Discussed Condition With: Patient, Dr. Perla <Milton Perla - Last Filed: 10/15/17 13:07> History of Present Illness Primary Care Provider: PROVIDER NON STAFF Family Provider: UNKNOWN [facility] - Medical History Medical History: Medical History (Last Reviewed 10/14/17 @ 19:28 by Justin Romero MD) COPD (chronic obstructive pulmonary disease) Chest pain Coronary artery disease Diabetes GERD (gastroesophageal reflux disease) Stroke - Surgical History Surgical History: Surgical History (Last Updated 10/14/17 @ 19:38 by Adenike Ramirez) Hx of cardiac cath Hx of cardiac cath Stented coronary artery - Family History Family History: Family History (Last Updated 10/15/17 @ 08:42 by KYRIE Wise) Father Heart disease Mother Heart disease Medications and Allergies Active Medications: Active Medications Acetaminophen (Tylenol) 650 mg PO Q4H PRN PRN Reason: Temp > 100.4 Last Admin: 10/15/17 07:46 Dose: 650 mg Al Hydroxide/Mg Hydroxide (Milk Of Magnesia Liq) 30 ml PO Q12H PRN PRN Reason: Mild Constipation Aspirin (Ecotrin) 81 mg PO DAILY [facility] Last Admin: 10/15/17 08:56 Dose: 81 mg Bisacodyl (Dulcolax Supp) 10 mg RECTAL DAILY PRN PRN Reason: SEVERE CONSITIPATION Dextrose (D50w Vial) 50 ml IV.PUSH UNSCH PRN PRN Reason: PER HYPOGLYCEMIA PROTOCOL Fenofibrate (Tricor) 145 mg PO DAILY [facility] Last Admin: 10/15/17 10:36 Dose: 145 mg Glucagon (Glucagon Inj) 1 mg OTHER PRN PRN PRN Reason: for Hypoglycemia Protocol Sodium Chloride (Ns Inj) 1,000 mls @ 100 mls/hr IV.CONT .Q10H [facility] Last Admin: 10/15/17 04:36 Dose: 100 mls/hr Heparin Sodium/Dextrose (Heparin/D5w 25,000 U/250 Ml) 25,000 unit in 250 mls @ 0 mls/hr IV.CONT TITRATE PRN; Protocol PRN Reason: Per Protocol Last Titration: 10/15/17 07:17 Dose: 900 units/hr, 9 mls/hr Sodium Chloride (Ns Inj) 1,000 mls @ 100 mls/hr IV.CONT .Q10H [facility] Insulin Aspart (Novolog Insulin Suppl Scale Inj) 0 unit SQ ACHS [facility]; Protocol Lactulose (Lactulose Liq) 30 ml PO DAILY PRN PRN Reason: SEVERE CONSITIPATION Metoclopramide HCl (Reglan Inj) 5 mg IV.PUSH Q6HR PRN; Protocol PRN Reason: NAUSEA OR VOMITING Morphine Sulfate (Morphine Inj) 2 mg IV.PUSH Q3H PRN PRN Reason: PAIN 6-10 Nitroglycerin (Nitro-Bid 2% Oint) 0.5 inch TOPICAL Q6HR PRN PRN Reason: CHEST PAIN Pantoprazole Sodium (Protonix) 40 mg PO DAILY [facility] Last Admin: 10/15/17 08:56 Dose: 40 mg Senna/Docusate Sodium (Symone-Colace) 1 tab PO BID [facility] Last Admin: 10/15/17 08:56 Dose: 1 tab Sennosides (Senokot) 17.2 mg PO Q12H PRN PRN Reason: Moderate Constipation Exam Vital signs: Vital Signs 10/14/17 19:03 10/14/17 19:49 10/14/17 20:47 Temperature 97.9 F Pulse Rate 68 66 Respiratory Rate 26 H 20 20 Blood Pressure 177/94 H 157/62 H 132/72 Pulse Oximetry 97 97 96 10/14/17 21:00 10/14/17 22:00 10/15/17 00:00 Temperature 97.6 F Pulse Rate 63 Respiratory Rate 20 20 Blood Pressure 136/74 149/79 H 118/56 L Pulse Oximetry 97 98 97 10/15/17 02:00 10/15/17 04:19 10/15/17 05:00 Temperature Pulse Rate 88 56 L Respiratory Rate 20 Blood Pressure 94/43 L 96/53 L Pulse Oximetry 97 97 10/15/17 05:42 10/15/17 08:00 10/15/17 12:00 Temperature 97.6 F 97.6 F 97.6 F Pulse Rate 62 57 L 55 L Respiratory Rate 18 16 Blood Pressure 120/73 115/53 L 104/55 L Pulse Oximetry 95 98 96 Intake & Output 10/14/17 10/15/17 10/15/17 18:59 06:59 18:59 Intake Total 1000 / 1000 Output Total 1050 / 1050 Balance -50 / -50 Weight 69.4 kg Intake: IV 1000 / 1000 NS Inj 1,000 ML @ 100 mls/hr IV 1000 / 1000 .CONT .Q10H [facility] Rx#:[id number] Oral 0 / 0 Output: Urine 1050 / 1050 Other: # Voids 2 Results 10/15/17 06:12 10/15/17 06:12 Cardiac Enzymes 10/14/17 10/14/17 10/15/17 Range/Units 19:00 19:00 00:05 AST 27 (15-37) U/L Troponin I Less than 0.02 L Less than 0.02 L (0.02-0.05) ng/mL B-Natriuretic Peptide 7 (0-100) pg/mL 10/15/17 10/15/17 Range/Units 06:12 06:12 AST 21 (15-37) U/L Troponin I Less than 0.02 L (0.02-0.05) ng/mL B-Natriuretic Peptide (0-100) pg/mL Coagulation 10/14/17 10/14/17 10/15/17 Range/Units 19:00 19:00 06:12 PT 9.9 (9.8-11.6) sec APTT 24.9 33.8 H D (24.3-30.1) sec B-Natriuretic Peptide 7 (0-100) pg/mL CBC 10/14/17 10/15/17 Range/Units 19:00 06:12 WBC 5.5 4.6 (4.0-11.0) th/mm3 RBC 5.52 4.73 (4.50-5.90) mil/mm3 Hgb 15.9 14.3 (13.0-17.0) gm/dL Hct 48.5 40.7 (39.0-51.0) % Plt Count 351 268 (150-450) th/mm3 Neut # (Auto) 3.2 2.4 (1.8-7.7) th/mm3 Lymph # (Auto) 1.6 1.7 (1.0-4.8) th/mm3 Stearns # (Auto) 0.4 0.3 (0.0-0.9) th/mm3 Eos # (Auto) 0.2 0.2 (0.0-0.4) th/mm3 Baso # (Auto) 0.1 0.1 (0.0-0.2) th/mm3 Comprehensive Metabolic Panel 10/14/17 10/15/17 Range/Units 19:00 06:12 Sodium 137 138 (136-145) meq/L Potassium 4.0 3.9 (3.5-5.1) meq/L Chloride 105 105 (98-107) meq/L Carbon Dioxide 20.9 L 22.0 (21.0-32.0) meq/L BUN 17 13 (7-18) mg/dL Creatinine 0.95 0.70 (0.60-1.30) mg/dL Calcium 8.9 8.6 (8.5-10.1) mg/dL AST 27 21 (15-37) U/L ALT 36 32 (12-78) U/L Alkaline Phosphatase 99 71 (45-117) U/L Total Protein 7.3 6.1 L D (6.4-8.2) g/dL Albumin 3.9 3.4 (3.4-5.0) g/dL Intake and Output 10/14/17 10/15/17 10/15/17 22:59 06:59 14:59 Intake Total 1000 / 1000 Output Total 1050 / 1050 Balance -50 / -50 Intake: IV 1000 / 1000 NS Inj 1,000 ML @ 100 mls/hr IV 1000 / 1000 .CONT .Q10H [facility] Rx#:[id number] Oral 0 / 0 Output: Urine 1050 / 1050 Other: # Voids 2 Weight 69.4 kg 69.4 kg Assessment and Plan - Attending Attestation ------- unstable angina recent PCI plan for [facility]
[2017-10-15 08:53] LABS: Albumin 3.4 g/dL (3.4-5.0); Anion Gap 11 meq/L (5-15); Blood Urea Nitrogen 13 mg/dL (7-18); Calcium 8.6 mg/dL (8.5-10.1); Chloride 105 meq/L (98-107); Glomerular Filtration Rate Greater Than 89 mL/min (>89); Glucose,Random 308 mg/dL (74-106); Potassium 3.9 meq/L (3.5-5.1); Sodium 138 meq/L (136-145)
[2017-10-15] MEDS ORDERED: Senna/Docusate Sodium 8.6/50 MG Tablet PO SCH (09:00)
[2017-10-15 09:11] LABS: Alanine Aminotransferase 32 U/L (12-78); Aspartate Aminotransferase 21 U/L (15-37); Total Protein 6.1 g/dL (6.4-8.2)
[2017-10-15] MEDS ORDERED: Fenofibrate 145 MG Tablet PO SCH (10:00)
--- NOTE | 2017-10-15 11:24 | ECG ---
Date Performed: 10/14/2017 Time Performed: 18:50:59 PTAGE: 66 years EKG: Sinus rhythm MARKED LEFT AXIS DEVIATION INFERIOR MYOCARDIAL INFARCTION ABNORMAL ECG INTERPRETATION BASED ON A DEF LISA AGE OF 40 YEARS PREVIOUS TRACING 08/28/17 21.57 Since the previous tracing, no significant change noted DOCTOR: Harry Marquis Interpretating Date/Time 10/15/2017 11:23:20
[2017-10-15] MEDS ORDERED: Heparin/NS PF Inj 500 ML ONE (12:03)
[2017-10-15] MEDS ORDERED: fentaNYL Citrate Inj 100 MCG/2 ML Ampul ONE (12:04)
[2017-10-15] MEDS ORDERED: Heparin 10,000 UNITS/10 ML Vial (for IV use) ONE ×2 (12:04→13:45)
[2017-10-15] MEDS ORDERED: Lidocaine PF 1% Inj 30 ML Vial ONE ×2 (12:11→13:54)
[2017-10-15] MEDS ORDERED: Misc Info for Pharmacy OTHER STA (13:08)
--- NOTE | 2017-10-15 13:11 | CATHPROC ---
[employer] HIS Report Study Information Study Number Admission Scheduled Start Study Start [id number] Oct 14 2017 9:51PM 10/15/2017 Oct 15 2017 11:52AM [place] [facility] Cardiac Catheterization Admit Source Facility Department Other [facility] Physician and Clinical Staff Initial Milton Rojas Supervisor Costuming Dara Mcdaniel RN Other cathlab, cathlab Recorder Benedict Lacy RCIS(BS) Scrub Praveena AlmendarezRT(R) Procedures Performed Procedure Location (Site) Vessel Name Coronary Angiograms LCA Left Coronary Coronary Angiograms RCA Right Coronary Drug Eluting Inflatio PDA Mid Right Coronary L Heart Cath PTCA PDA Mid Right Coronary PTCA RCA Prox Right Coronary Wire insertion PDA Mid Right Coronary Equipment Time Silo Painter Description Size Mfg Part Number Used/Scraped COPILOT VALVE, BLEEDBACK [id number] 12:41 [employer] Used CONTROL *[id number] TRANSDUCER, TRUWAVE [id number] 12:05 SIMENTAL SALDAÑA * Used W/STOCKCOCK *[id number] *[id number] 12:05 [employer] BLANKET,WARM AIR CCL * Used *[id number] 12:05 [employer] PACK, CCL CUSTOM * Used *[id number] 12:05 [employer] SUPPORT, ARTERIAL ADULT 61360 *[id number] Used [id number] 12:05 [employer] PACER PEN, SKIN DUAL W/ RULER * Used *[id number] 12:42 [employer] BALLOON, 2.0 X 10MM EUPHORA 10MM Used *[id number] 12:57 [employer] BALLOON, 2.5 X 15MM EUPHORA 15MM Used *[id number] 12:28 [employer] JL 3.5 DXTERITY CATHETER FR 5 Used *[id number] 12:28 [employer]IC JR 5.0 DXTERITY CATHETER fr 5 [id number] Used [id number] 12:52 [employer] STENT, 2.0 15MM GABRIELLE 2.0 X 15MM Used *[id number] 12:39 [employer]us 30 JENNIFFER INDEFLATOR Used *[id number] BAND, RADIAL COMPRESSION TR [id number] 13:01 [employer] 29CM Used LARGE 29 *[id number] SHEATH, FR6 RADIAL PRELUDE 12:05 [employer]us FR 6 [id number] Used EASE 11CM [id number] 12:05 [employer] MEDICAL WIRE, EXCHANGE 260CM 3MMJ 260CM Used *[id number] 12:05 NAMIC MANIFOLD, 4 PORT * Used *[id number] 12:05 [employer] OMNIPAQUE, 350 MG, 150ML 150ML [id number] Used WIRE, RUNTHROUGH NS FLOPPY [id number] 12:40 [employer] MEDICAL 180CM Used .014 180CM *[id number] Equipment Model, Serial, Lot Number and Expiration Data Description Model Number Serial Number Lot Number Expiration Date STENT, 2.0 15MM GABRIELLE [id number] 05-01-2019 History: Current Medications Medication Dosage/Unit Route Frequency Last Date/Time Taken PLAVIX ASA History: Allergies Allergy Reaction Brilinta VOMITING, CRAMPS codeine Itching Vicodin ITCHING/SWELLING hydrocodone itching and swelling acetaminophen ITCHING/SWELLING ticagrelor VOMITING, CRAMPS History: Risk Factors Family History of Previous [place] Premature CAD Yes Yes Prior PCI Prior PCIDate Prior CABG Yes 10/01/2017 No Cerebrovascular Peripheral Artery Chronic Lung On Dialysis Diabetes Diabetes Therapy Disease Disease Disease No No No Yes Yes Diet History: Symptoms/Diagnosis Selection Items Chest pain History: Stress Tests Stress or Imaging Studies Performed No History: [place]/CV Data Previous Cath Date 10/01/2017 History: Other Current Smoker No Labs Hgb (g/dl) Hct (%) WBC (l/cumm) Platelets (thousands) 11.60-17.00 35.00-51.00 4.00-11.00 150.00-450.00 14.0 40 4.7 268 Glucose (mg/dl) BUN (mg/dl) Creatinine (mg/dl) BUN:Creatinine (1:x) 74.00-106.00 7.00-18.00 0.50-1.30 10.00-20.00 308 13 0.7 18.6 Na (meq/l) K (meq/l) 136.00-145.00 3.50-5.10 138 3.9 INR (PTT:PT) 0.90-1.10 1 Troponin I (ng/ml) CPK (u/l) CPK-MB (ng/ML) 0.02-0.05 26.00-308.00 0.50-3.60 0.02 72 Not Drawn Medication Medication Total Dose (Bolus/Oral) Medication Total Dosage/Unit 1% XYLOCAINE 2 mL ANGIOMAX BOLUS 10 mL FENTANYL 50 mcg HEPARIN 5000 units NITRO OINTMENT 2 inches NTG (IC) 400 mcg PLAVIX 300 mg VERSED 1 mg Medications (Bolus/Oral) Medication Time Given Dosage/Unit Administered By Reason NITRO OINTMENT 10/15/2017 12:10:30 PM 2 inches Patient arrived on 2 inches NITRO OINTMENT in Left shoulder via Peripheral IV. Ordered by George Perla. VERSED 10/15/2017 12:26:38 PM 1 mg Dara Mcdaniel 1 mg VERSED given in lab by Dara Mcdaniel RN in Left Antecubital via Peripheral IV. Ordered by Milton Doyle. FENTANYL 10/15/2017 12:26:43 PM 50 mcg Dara Mcdaniel 50 mcg FENTANYL given in lab by Dara Mcdaniel RN in Left Antecubital via Peripheral IV. Ordered b y Milton Perla. 1% XYLOCAINE 10/15/2017 12:29:47 PM 2 mL Mitlon Perla 2 mL 1% XYLOCAINE given in lab by Milton Perla in Right Radial via Subcutaneous. NTG (IC) 10/15/2017 12:31:55 PM 200 mcg Milton Perla 200 mcg NTG (IC) given in lab by Milton Perla in Right Radial via Intra-coronary. HEPARIN 10/15/2017 12:33:02 PM 5000 units Dara Mcdaniel 5000 units HEPARIN given in lab by Dara Mcdaniel RN in Left Antecubital via Peripheral IV. Ordere d by Milton Perla. ANGIOMAX BOLUS 10/15/2017 12:44:27 PM 10 mL Dara Mcdaniel 10 mL ANGIOMAX BOLUS given in lab by Dara Mcdaniel RN via Peripheral IV. Ordered by Brian Perla. NTG (IC) 10/15/2017 12:54:37 PM 200 mcg Milton Perla 200 mcg NTG (IC) given in lab by Milton Perla via Intra-coronary. PLAVIX 10/15/2017 1:05:32 PM 300 mg Pavithra Mcdanielaret 300 mg PLAVIX given in lab by Dara Mcdaniel RN via Oral. Ordered by Milton Perla. Medication (Drip) Medication Time Given Dosage/Unit Concentration/Unit Diluent (ml) Solution ANGIOMAX DRIP 10/15/2017 12:46:30 PM 1.75 mg/kg/hr 250 mg 50 NaCl .9 1.75 mg/kg/hr ANGIOMAX DRIP given in lab by Dara Mcdaniel, JUD in Left Antecubital via Peripheral I V. Pump/Drip Flow = 24.46 ml/hr using NaCl .9 with a concentration of 250 mg in 50 ml. Ordered by Milton Perla. IV Solutions 10/15/2017 12:04:04 PM 0 mL (IV) 500 NaCl .9 Patient arrived on IV Solutions in Left Antecubital via Peripheral IV. Pump/Drip Flow = 20 ml/hr usin g NaCl .9. Ordered by Milton Perla. Initial Case Assessment Cardiovascular HR Rhythm NIBP Chest Pain 56 sbrady 158/69 0 Edema Present Skin color Skin None Normal Warm Dry Circulatory - Right Pulses Dorsalis Pedis Femoral Radial 2 2 2 Scale (0,1,2,3,4,d) Scale (0,1,2,3,4,d) Neurological State Oriented to time-place- Alert Moves all extremities person Respiration - General Respiration Rate SpO2 (%) (B/min) 15 93 Final Case Assessment Cardiovascular HR Rhythm NIBP Chest Pain 67 nsr 128/72 0 Edema Present Skin color Skin None Normal Warm Dry Circulatory - Right Pulses Dorsalis Pedis Femoral Radial 2 2 2 Scale (0,1,2,3,4,d) Scale (0,1,2,3,4,d) Neurological State Oriented to time-place- Alert Moves all extremities person Respiration - General Respiration Rate SpO2 (%) (B/min) 15 93 Chronological Log Time Study Chronological Log 12:03:45 Patient arrived via Bed. 12:03:46 Patient Name, D.O.B, / Armband Verified By R.N. 12:03:46 Consent signed by the physician and the patient and verified by the Machinery Erector staff. 12:03:47 Pre-op and post- op instructions given; patient acknowledges understanding of instructions. 12:03:48 Verbal Stimulation=2 Physical Stimulation=2 Airway=2 Respiration=2 TOTAL=8. (0=absent, 1=li mited, 2=present) 12:03:49 Presedation assessment performed by Machinery Erector RN. 12:03:50 Speedys test performed on the right radial and ulnar artery. POSITIVE. 12:03:51 Immediate Presedation assesment performed by physician. 12:03:52 Patient has been NPO for More than 6Hrs. 12:03:52 Skin Breakdown- none per patient 12:04:01 Patient Warmer Placed on the Table. 12:04:02 Jessica Prominences Protected 12:04:04 A # 20 IV was noted in the Antecubital (left). Grade = 0 Patient arrived on IV Solutions in Left Antecubital via Peripheral IV. Pump/Drip Flow = 20 ml/h r using NaCl .9. Ordered 12:04:04 by Milton Perla. 12:04:04 History and physical on the chart or being dictated. Assessment: Initial Case, HR=56 BPM, Rhythm=sbrady, SFOG=259/69 mmhg, Chest Pain=0, Edema=None, Color=Normal, Skin = Warm, Dry 12:10:06 Right Pulses: Jason Ped=2, Femoral=2, Radial=2 Neurological: State=Alert, Ox3, GOODE Respiration: Resp=15 B/min, SpO2=93 % Vitals capture started with the following parameters, Patient=Adult, Interval=5 min, Initial Pr qdcxoa=841 mmHg, 12:10:07 Deflation Rate=5 mmHg, Cuff placed on Left Arm 12:10:20 Reference ECG taken 12:10:30 Patient arrived on 2 inches NITRO OINTMENT in Left shoulder via Peripheral IV. Ordered by Milton aNranjo. 12:10:55 HR=63 bpm, ZLAY=545/69 mmhg, SpO2=93.0 %, Resp=14 B/min, Pain=0, Nesha=10, Rodgers=2 12:14:00 Right Radial and groin(s) prepped with 2% chlorhexidine, and draped after a 3 min. waiting time. 12:15:52 HR=60 bpm, WACE=671/72 mmhg, SpO2=94.0 %, Resp=20 B/min, Pain=0, Nesha=10, Rodgers=2 12:20:25 Pressure channel 1 zeroed. 12:20:48 paged 12:20:51 HR=61 bpm, CDKP=665/70 mmhg, SpO2=93.0 %, Resp=15 B/min, Pain=0, Nesha=10, Rodgers=2 12:21: MD responded 12:24: MD arrived. 12:: Contrast Scanned 12:: Immediate Presedation assesment performed by physician. 12:25:48 HR=63 bpm, WSJQ=265/71 mmhg, SpO2=93.0 %, Resp=16 B/min, Pain=0, Nesha=10, Rodgers=2 Time Out. Correct patient, correct procedure, correct physician, labs, allergies, and equipment verified with analyst microbiology lab 12::52 team present. Fire risk assesment completed (see hard stop sheet for coding). Time Out Conc urred by MD and individual staff in procedure. 12::38 1 mg VERSED given in lab by Dara Mcdaniel, JUD in Left Antecubital via Peripheral IV. Ord ered by Milton Perla. 50 mcg FENTANYL given in lab by Dara Mcdaniel RN in Left Antecubital via Peripheral IV. Ord ered by Pan 12::43 Milton. 12:28:59 Verbal Stimulation=2 Physical Stimulation=2 Airway=2 Respiration=2 TOTAL=8. (0=absent, 1=li mited, 2=present) 12:29:47 Case Start 12::47 2 mL 1% XYLOCAINE given in lab by Milton Perla in Right Radial via Subcutaneous. 12:30:51 HR=59 bpm, QEKT=106/67 mmhg, SpO2=90.0 %, Resp=15 B/min, Pain=0, Nesha=10, Rodgers=2 12:30:56 Access site was Right Radial Artery. A SHEATH, FR6 RADIAL PRELUDE EASE 11CM FR 6 was advanced into the Radial (right) using the Perc utaneous 12::04 technique. 12:31:21 In the Radial (right) the SHEATH, FR6 RADIAL PRELUDE EASE 11CM FR [address] by Milton Perla. 12:31:55 200 mcg NTG (IC) given in lab by Milton Perla in Right Radial via Intra-coronary. A JR 5.0 DXTERITY CATHETER fr 5 was advanced over a wire. OMNIPAQUE, 350 MG, 150ML 150ML was us ed for 12:32:39 injections. 5000 units HEPARIN given in lab by Dara Mcdaniel, JUD in Left Antecubital via Peripheral IV. Ordered by Pan, 12:33:02 Milton. Recorded Pressure: LV, HR=57, Condition=Condition 1 12:33:43 (Left Ventricle) LV 112/4/10 Recorded Pressure: LV, Ao, HR=57, Condition=Condition 1 12:33:47 (Left Ventricle) LV 113/6/10, (Aorta) Ao 106/56/76 Recorded Pressure: Ao, HR=55, Condition=Condition 1 12:34:02 (Aorta) Ao 131/60/86 12:34:08 The RCA was injected and visualized at various angles. OMNIPAQUE, 350 MG, 150ML 150ML used . 12:35:44 HR=64 bpm, WTLB=078/67 mmhg, SpO2=90.0 %, Resp=20 B/min, Pain=0, Nesha=10, Rodgers=2 After removing the current catheter a JL 3.5 DXTERITY CATHETER FR 5 was advanced over a WIRE, E XCHANGE 260CM 12:35:50 3MMJ 260CM. 12:37:04 The LCA was injected and visualized at various angles. OMNIPAQUE, 350 MG, 150ML 150ML used . After removing the current catheter a JR 5.0 GUIDE CATHETER FR 6 was advanced over a WIRE, EXCH MICHELLE 260CM 12:40:39 3MMJ 260CM. 12:40:47 HR=62 bpm, RKVZ=053/61 mmhg, SpO2=94.0 %, Resp=23 B/min, Pain=0, Nesha=10, Rodgers=2 12:43:53 A WIRE, RUNTHROUGH NS FLOPPY .014 180CM 180CM was inserted via PDA Mid. 12:44:27 10 mL ANGIOMAX BOLUS given in lab by Dara Mcdaniel, JUD via Peripheral IV. Ordered by Milton Schneider. 12:45:46 HR=62 bpm, SLDW=324/64 mmhg, SpO2=95.0 %, Resp=20 B/min, Pain=0, Nesha=10, Rodgers=2 1.75 mg/kg/hr ANGIOMAX DRIP given in lab by Dara Mcdaniel, JUD in Left Antecubital via Periph eral IV. Pump/Drip 12:46:30 Flow = 24.46 ml/hr using NaCl .9 with a concentration of 250 mg in 50 ml. Ordered by Fredis Perla. 12:48:18 Interventional wire has crossed the lesion A BALLOON, 2.0 X 10MM EUPHORA 10MM was inserted over WIRE, RUNTHROUGH NS FLOPPY .014 180CM 180C M via 12:48:33 the Radial (right). A BALLOON, 2.0 X 10MM EUPHORA 10MM over a WIRE, RUNTHROUGH NS FLOPPY .014 180CM 180CM in the PD A Mid 12:49:41 was inflated using a 30 JENNIFFER INDEFLATOR at 6 jenniffer for 10 sec. A BALLOON, 2.0 X 10MM EUPHORA 10MM over a WIRE, RUNTHROUGH NS FLOPPY .014 180CM 180CM in the PD A Mid 12:50:06 was inflated using a 30 JENNIFFER INDEFLATOR at 6 jenniffer for 10 sec. A BALLOON, 2.0 X 10MM EUPHORA 10MM over a WIRE, RUNTHROUGH NS FLOPPY .014 180CM 180CM in the PD A Mid 12:50:21 was inflated using a 30 JENNIFFER INDEFLATOR at 10 jenniffer for 15 sec. 12:50:45 HR=68 bpm, YOAH=641/65 mmhg, SpO2=96.0 %, Resp=16 B/min, Pain=0, Nesha=10, Rodgers=2 12:51:15 Balloon Removed. A STENT, 2.0 15MM GABRIELLE 2.0 X 15MM was advanced through a JR 5.0 GUIDE CATHETER FR 6 over a WIRE , 12:51:52 RUNTHROUGH NS FLOPPY .014 180CM 180CM. A STENT, 2.0 15MM GABRIELLE 2.0 X 15MM was deployed using a 30 JENNIFFER INDEFLATOR at 10 atmospheres for 10 seconds 12:53:05 in the PDA Mid. 12:53:54 Re-inflated the stent balloon in the PDA Mid to 8 JENNIFFER for 20 seconds. 12:54:37 200 mcg NTG (IC) given in lab by Milton Perla via Intra-coronary. 12:54:52 Delivery device removed 12:55:46 HR=73 bpm, SWKT=502/63 mmhg, SpO2=94.0 %, Resp=15 B/min, Pain=0, Nesha=10, Rodgers=2 A BALLOON, 2.5 X 15MM EUPHORA 15MM was inserted over WIRE, RUNTHROUGH NS FLOPPY .014 180CM 180C M via 12:56:37 the Radial (right). A BALLOON, 2.5 X 15MM EUPHORA 15MM over a WIRE, RUNTHROUGH NS FLOPPY .014 180CM 180CM in the RC A 12:56:57 Prox was inflated using a 30 JENNIFFER INDEFLATOR at 12 jenniffer for 30 sec. A BALLOON, 2.5 X 15MM EUPHORA 15MM over a WIRE, RUNTHROUGH NS FLOPPY .014 180CM 180CM in the RC A 12:57:34 Prox was inflated using a 30 JENNIFFER INDEFLATOR at 12 jenniffer for 30 sec. A BALLOON, 2.5 X 15MM EUPHORA 15MM over a WIRE, RUNTHROUGH NS FLOPPY .014 180CM 180CM in the RC A 12:57:42 Prox was inflated using a 30 JENNIFFER INDEFLATOR at 12 jenniffer for 30 sec. 12:58:07 Balloon Removed. 12:59:24 Wire removed 13:00:12 Catheter was removed 13:00:22 Case End (Physician broke scrub) 13:00:43 HR=73 bpm, NMBV=908/72 mmhg, SpO2=94.0 %, Resp=20 B/min, Pain=0, Nesha=10, Rodgers=2 Assessment: Final Case, HR=67 BPM, Rhythm=nsr, OWQS=938/72 mmhg, Chest Pain=0, Edema=None, [place] r=Normal, Skin = Warm, Dry 13:03:06 Right Pulses: Jason Ped=2, Femoral=2, Radial=2 Neurological: State=Alert, Ox3, GOODE Respiration: Resp=15 B/min, SpO2=93 % 13:03:20 Catheter(s) removed without difficulty Radial Compression Device Used. 12 mLs of air placed in BAND, RADIAL COMPRESSION TR LARGE 29 29 CM. Affected 13:03:21 hand 95 % O2 saturation. 13:03:39 Sterile dressing applied to site 13:03:39 No case complications noted. 13:03:40 Cine recording checked. 13:03:43 Bedside Report will be given. 13:03:43 Implantable Device card placed in patient's chart. 13:03:46 Verbal Stimulation=2 Physical Stimulation=2 Airway=2 Respiration=2 TOTAL=8. (0=absent, 1=li mited, 2=present) 13:03:50 A Left Heart Cath was performed. 13:05:32 300 mg PLAVIX given in lab by Dara Mcdaniel, JUD via Oral. Ordered by Milton Perla. 13:05:48 HR=74 bpm, ADNW=255/67 mmhg, SpO2=95.0 %, Resp=15 B/min, Pain=0, Nesha=10, Rodgers=2 13:10:01 Patient moved to stretcher 13:10:26 Vitals capture stopped. End Study - Contrast Media Used In Study Contrast Total Opened (mL) Total Used (mL) Total Wasted (mL) Omnipaque 100 100 0 End Study - Maximum Contrast Load Max Contrast Load (mL) 499.4 End Study - Radiation Exposure Fluoro Time (minutes) 7.2 End Study - Sheaths Sheaths Pulled By Sheath Hold Time (min) Praveena Almendarez End Study - Patient Disposition Complications Transferred To Interventional Outcome No Telemetry Bed successful
[2017-10-15] MEDS ORDERED: Iohexol 350 MG/ML 100 ML Vial (for Cath Lab) IV.SIG ONE (13:17)
--- NOTE | 2017-10-15 13:26 | MA ---
cc: Milton Perla MD DATE: 10/15/2017 INDICATION: Unstable angina. PROCEDURES PERFORMED: 1. Fluoroscopy with interpretation. 2. Left heart catheterization. 3. Left ventriculography. 4. Coronary angiography. 5. Percutaneous coronary angioplasty of the proximal right coronary artery. 6. Percutaneous endovascular stenting with a drug-eluting stent to the posterior descending artery. METHOD: The risks, benefits and alternatives discussed with the patient. The patient understood and consented to the procedure. The patient was brought into the catheterization lab, place don the catheterization table. The right wrist was prepped and draped in a sterile fashion. The right wrist was anesthetized with 2% lidocaine. The right radial artery was cannulated and a 6-Divehi, 7 cm sheath was placed without difficulty. LEFT HEART CATHETERIZATION: The interventricular Hemodynamics were measured at 113/6 mmHg. CORONARY ANGIOGRAPHY: 1. Left main coronary artery is angiographically normal. 2. Left anterior descending coronary artery has minor luminal irregularities. The diagonal branch has mild luminal irregularities. 3. Left circumflex has mild luminal irregularities. First obtuse marginal branch has a 30% stenosis. 4. Right coronary has stents present in the proximal and distal segments. The posterior descending branch has an ostial 70% stenosis in addition to a 90% distal stenosis in the mid segment. Proximal right coronary has some dampening upon engagement. PERCUTANEOUS CORONARY INTERVENTION: The right coronary artery is selectively engaged with a 6-Divehi JR5 guide catheter. A 0.014 inch x 300 cm Secpanel Runthrough wire was navigated down to the distal right coronary artery. A 2.0 x 12 mm RX Euphora balloon was then deployed in the ostium of the posterior descending and mid segment of the posterior descending coronary artery. Repeat angiography still showed severe residual stenosis. A 2.0 x 16 mm RX drug-eluting Resolute [place] stent was advanced down to the mid segment of the posterior descending coronary artery and deployed. A 2.5 x 15 mm RX Euphora balloon was deployed at the proximal right coronary due to dampening. Repeat angiography showed no significant residual stenosis, ROSARIO 3 flow. CONCLUSIONS: 1. Severe posterior descending coronary stenosis. 2. Successful percutaneous coronary angioplasty with drug-eluting stent to the mid segment of the posterior descending coronary artery. PLAN: 1. The patient will be monitored closely for any post-procedure complications. 2. Continue aspirin, Plavix, statin, beta maru, isosorbide. Anticipate possible discharge either later today or tomorrow morning. MD ASHLEY Silva/PURA , 01:06 PM , 01:23 PM
[2017-10-15] MEDS ORDERED: Isosorbide Mononitrate 30 MG ER 24HR Tablet (Imdur) PO ONE (14:00)
[2017-10-15 15:18] LABS: Cholesterol 154 mg/dL (120-200); Triglycerides 894 mg/dL (42-150)
[2017-10-15 15:20] LABS: Chol/HDL Ratio 8.14 Ratio; HDL Cholesterol 18.9 mg/dL (40.0-60.0)
--- NOTE | 2017-10-15 16:37 | P.HP ---
History of Present Illness Primary Care Physician: PROVIDER NON STAFF Chief Complaint: chest pain History of Present Illness: This is a 66-year-old male who presented to the emergency department complaining of severe constant retrosternal sharp pain with radiation to left upper extremity for over a day associated with shortness of breath, dizziness and nausea. 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 States right after cardiac catheterization 10 days ago, he developed mild chest discomfort which went away after an hour. He had recurrence of mild transient chest pain several days later. He has been compliant with his medications. In the emergency department, he was started on heparin drip. He underwent cardiac catheterization today and underwent stenting of the PDA. At this time he is pain-free. He has been cleared for discharge by cardiology additional medications are Lopressor and Lipitor. - Diagnosis (1) Unstable angina - Inpatient Certification If this patient has been admitted as an Inpatient: I certify that the inpatient services were ordered in accordance with Medicare regulations governing the order. This includes certification that hospital inpatient services are reasonable and necessary and in the case of services not specified as inpatient-only under 42 CFR 419.22(n), that they are appropriately provided as inpatient services in accordance to with the 2-midnight benchmark under 43 CFR 412.3(e) Estimated Total Length of Stay (Days): 2 Plans for Post Hospital Care: Home Review of Systems All other systems reviewed negative except as stated in HPI [facility] - History History Provided By: Patient - Medical History Medical History: Medical History (Last Reviewed 10/14/17 @ 19:28 by Justin Romero MD) COPD (chronic obstructive pulmonary disease) Chest pain Coronary artery disease Diabetes GERD (gastroesophageal reflux disease) Stroke - Surgical History Surgical History: Surgical History (Last Updated 10/14/17 @ 19:38 by Adenike Ramirez) Hx of cardiac cath Hx of cardiac cath Stented coronary artery - Family History Family History: Family History (Last Updated 10/15/17 @ 08:42 by KYRIE Wise) Father Heart disease Mother Heart disease - Tobacco History Second Hand Smoke Exposure: No Tobacco Use In Past 30 Days: No Smoking Status: Former smoker Tobacco Type: Cigarettes - Alcohol History How Often Do You Have a Drink Containing Alcohol: Never - Substance Use History Substance History: No History of Abuse - Travel History Recent Travel Out of the Country Within the Last 8 Weeks: No - Immunization History Tetanus Immunization: Unsure Hx Influenza Vaccine This Season: No Medications and Allergies Active Medications: Active Medications Acetaminophen (Tylenol) 650 mg PO Q4H PRN PRN Reason: Temp > 100.4 Last Admin: 10/15/17 07:46 Dose: 650 mg Al Hydroxide/Mg Hydroxide (Milk Of Magnesia Liq) 30 ml PO Q12H PRN PRN Reason: Mild Constipation Aspirin (Ecotrin) 81 mg PO DAILY [facility] Last Admin: 10/15/17 08:56 Dose: 81 mg Atorvastatin Calcium (Lipitor) 40 mg PO HS [facility] Bisacodyl (Dulcolax Supp) 10 mg RECTAL DAILY PRN PRN Reason: SEVERE CONSITIPATION Clopidogrel Bisulfate (Plavix) 75 mg PO DAILY [facility] Dextrose (D50w Vial) 50 ml IV.PUSH UNSCH PRN PRN Reason: PER HYPOGLYCEMIA PROTOCOL Fenofibrate (Tricor) 145 mg PO DAILY [facility] Last Admin: 10/15/17 10:36 Dose: 145 mg Glucagon (Glucagon Inj) 1 mg OTHER PRN PRN PRN Reason: for Hypoglycemia Protocol Sodium Chloride (Ns Inj) 1,000 mls @ 100 mls/hr IV.CONT .Q10H [facility] Last Admin: 10/15/17 15:00 Dose: 100 mls/hr Sodium Chloride (Ns Inj) 1,000 mls @ 100 mls/hr IV.CONT .Q10H [facility] Insulin Aspart (Novolog Insulin Suppl Scale Inj) 0 unit SQ ACHS [facility]; Protocol Lactulose (Lactulose Liq) 30 ml PO DAILY PRN PRN Reason: SEVERE CONSITIPATION Metoclopramide HCl (Reglan Inj) 5 mg IV.PUSH Q6HR PRN; Protocol PRN Reason: NAUSEA OR VOMITING Metoprolol Tartrate (Lopressor) 12.5 mg PO BID [facility] Morphine Sulfate (Morphine Inj) 2 mg IV.PUSH Q3H PRN PRN Reason: PAIN 6-10 Pantoprazole Sodium (Protonix) 40 mg PO DAILY [facility] Last Admin: 10/15/17 08:56 Dose: 40 mg Senna/Docusate Sodium (Symone-Colace) 1 tab PO BID [facility] Last Admin: 10/15/17 08:56 Dose: 1 tab Sennosides (Senokot) 17.2 mg PO Q12H PRN PRN Reason: Moderate Constipation Sodium Chloride (Ns Flush) 2 ml IV.FLUSH BID [facility] Sodium Chloride (Ns Flush) 2 ml IV.FLUSH PRN PRN PRN Reason: FLUSH AFTER USING IV ACCESS Allergies Allergy/AdvReac Type Severity Reaction Status Date / Time codeine Allergy Severe Itching Verified 10/14/17 19:26 hydrocodone Allergy Intermediate itching Verified 10/14/17 19:25 and swelling ticagrelor AdvReac Severe VOMITING, Verified 10/14/17 19:30 CRAMPS Home Medications Medication Instructions Recorded Confirmed Type aspirin [Aspir-81] 81 mg PO DAILY 10/14/17 10/14/17 History clopidogrel 75 mg PO DAILY 10/14/17 10/14/17 History fenofibrate [Lipofen] 100 mg PO DAILY 10/14/17 10/14/17 History glipizide 5 mg PO BID 10/14/17 10/14/17 History pantoprazole 40 mg PO DAILY 10/14/17 10/14/17 History Exam Vital signs: Vital Signs 10/14/17 19:03 10/14/17 19:49 10/14/17 20:47 Temperature 97.9 F Pulse Rate 68 66 Respiratory Rate 26 H 20 20 Blood Pressure 177/94 H 157/62 H 132/72 Pulse Oximetry 97 97 96 10/14/17 21:00 10/14/17 22:00 10/15/17 00:00 Temperature 97.6 F Pulse Rate 63 Respiratory Rate 20 20 Blood Pressure 136/74 149/79 H 118/56 L Pulse Oximetry 97 98 97 10/15/17 02:00 10/15/17 04:19 10/15/17 05:00 Temperature Pulse Rate 88 56 L Respiratory Rate 20 Blood Pressure 94/43 L 96/53 L Pulse Oximetry 97 97 10/15/17 05:42 10/15/17 07:00 10/15/17 08:00 Temperature 97.6 F 97.6 F Pulse Rate 62 54 L 50 L Respiratory Rate 18 Blood Pressure 120/73 115/53 L Pulse Oximetry 95 98 10/15/17 09:00 10/15/17 10:00 10/15/17 11:00 Temperature Pulse Rate 52 L 50 L 53 L Respiratory Rate Blood Pressure Pulse Oximetry 10/15/17 12:00 10/15/17 13:00 10/15/17 14:00 Temperature 97.6 F Pulse Rate 55 L 56 L 62 Respiratory Rate 16 Blood Pressure 104/55 L Pulse Oximetry 96 10/15/17 15:00 10/15/17 16:00 Temperature 98 F Pulse Rate 62 62 Respiratory Rate 16 Blood Pressure 134/74 Pulse Oximetry Intake & Output 10/14/17 10/15/17 10/15/17 18:59 06:59 18:59 Intake Total 1000 / 1000 1000 / 1000 Output Total 1050 / 1050 Balance -50 / -50 1000 / 1000 Weight 69.4 kg Intake: IV 1000 / 1000 1000 / 1000 NS Inj 1,000 ML @ 100 mls/hr IV 1000 / 1000 1000 / 1000 .CONT .Q10H [facility] Rx#:[id number] Oral 0 / 0 Output: Urine 1050 / 1050 Other: # Voids 2 Narrative: GENERAL: Well-developed and well-nourished in no distress SKIN: Warm and dry. HEAD: Normocephalic. EYES: No scleral icterus. No injection or drainage. NECK: Supple, trachea midline. No JVD or lymphadenopathy. Bruit on the left underwent unremarkable carotid ultrasound 10 days ago CARDIOVASCULAR: Regular rate and rhythm without murmurs, gallops, or rubs. RESPIRATORY: Breath sounds equal bilaterally. No accessory muscle use. GASTROINTESTINAL: Abdomen soft, non-tender, nondistended. MUSCULOSKELETAL: No cyanosis, or edema. BACK: Nontender without obvious deformity. No CVA tenderness. Results - Labs CBC & Chem 7: 10/15/17 06:12 10/15/17 06:12 Labs: Laboratory Results - last 24 hr 10/14/17 10/14/17 10/14/17 19:00 19:00 19:00 CBC w Diff Auto diff final WBC 5.5 RBC 5.52 Hgb 15.9 Hct 48.5 MCV 87.8 MCH 28.8 MCHC 32.8 RDW 12.8 Plt Count 351 MPV 7.7 Neut % (Auto) 59.0 Lymph % (Auto) 29.6 [place] % (Auto) 7.0 Eos % (Auto) 3.2 Baso % (Auto) 1.2 Neut # (Auto) 3.2 Lymph # (Auto) 1.6 [place] # (Auto) 0.4 Eos # (Auto) 0.2 Baso # (Auto) 0.1 WBC Differential . PT 9.9 INR 1.0 APTT 24.9 Sodium 137 Potassium 4.0 Chloride 105 Carbon Dioxide 20.9 L Anion Gap 11 BUN 17 Creatinine 0.95 Estimated GFR 79 L POC Glucose Random Glucose 337 H Calcium 8.9 Total Bilirubin 0.5 AST 27 ALT 36 Alkaline Phosphatase 99 Total Creatine Kinase 72 Troponin I Less than 0.02 L B-Natriuretic Peptide Total Protein 7.3 Albumin 3.9 Triglycerides Cholesterol LDL Cholesterol, Calc HDL Cholesterol Cholesterol/HDL Ratio 10/14/17 10/15/17 10/15/17 19:00 00:05 06:12 CBC w Diff Auto diff final WBC 4.6 RBC 4.73 Hgb 14.3 Hct 40.7 MCV 86.0 MCH 30.3 MCHC 35.2 RDW 13.9 Plt Count 268 MPV 7.6 Neut % (Auto) 51.5 Lymph % (Auto) 36.4 [place] % (Auto) 7.5 Eos % (Auto) 3.3 Baso % (Auto) 1.3 Neut # (Auto) 2.4 Lymph # (Auto) 1.7 [place] # (Auto) 0.3 Eos # (Auto) 0.2 Baso # (Auto) 0.1 WBC Differential . PT INR APTT Sodium Potassium Chloride Carbon Dioxide Anion Gap BUN Creatinine Estimated GFR POC Glucose Random Glucose Calcium Total Bilirubin AST ALT Alkaline Phosphatase Total Creatine Kinase Troponin I Less than 0.02 L B-Natriuretic Peptide 7 Total Protein Albumin Triglycerides Cholesterol LDL Cholesterol, Calc HDL Cholesterol Cholesterol/HDL Ratio 10/15/17 10/15/17 10/15/17 06:12 06:12 06:12 CBC w Diff WBC RBC Hgb Hct MCV MCH MCHC RDW Plt Count MPV Neut % (Auto) Lymph % (Auto) [place] % (Auto) Eos % (Auto) Baso % (Auto) Neut # (Auto) Lymph # (Auto) [place] # (Auto) Eos # (Auto) Baso # (Auto) WBC Differential PT INR APTT 33.8 H D Sodium 138 Potassium 3.9 Chloride 105 Carbon Dioxide 22.0 Anion Gap 11 BUN 13 Creatinine 0.70 Estimated GFR Greater than 89 POC Glucose Random Glucose 308 H Calcium 8.6 Total Bilirubin 0.4 AST 21 ALT 32 Alkaline Phosphatase 71 Total Creatine Kinase Troponin I Less than 0.02 L B-Natriuretic Peptide Total Protein 6.1 L D Albumin 3.4 Triglycerides 894 H Cholesterol 154 LDL Cholesterol, Calc HDL Cholesterol 18.9 L Cholesterol/HDL Ratio 8.14 10/15/17 10/15/17 10/15/17 06:12 07:54 11:48 CBC w Diff WBC RBC Hgb Hct MCV MCH MCHC RDW Plt Count MPV Neut % (Auto) Lymph % (Auto) [place] % (Auto) Eos % (Auto) Baso % (Auto) Neut # (Auto) Lymph # (Auto) [place] # (Auto) Eos # (Auto) Baso # (Auto) WBC Differential PT INR APTT Sodium Potassium Chloride Carbon Dioxide Anion Gap BUN Creatinine Estimated GFR POC Glucose 284 H 276 H 247 H Random Glucose Calcium Total Bilirubin AST ALT Alkaline Phosphatase Total Creatine Kinase Troponin I B-Natriuretic Peptide Total Protein Albumin Triglycerides Cholesterol LDL Cholesterol, Calc HDL Cholesterol Cholesterol/HDL Ratio 10/15/17 15:35 CBC w Diff WBC RBC Hgb Hct MCV MCH MCHC RDW Plt Count MPV Neut % (Auto) Lymph % (Auto) [place] % (Auto) Eos % (Auto) Baso % (Auto) Neut # (Auto) Lymph # (Auto) [place] # (Auto) Eos # (Auto) Baso # (Auto) WBC Differential PT INR APTT 85.0 H D Sodium Potassium Chloride Carbon Dioxide Anion Gap BUN Creatinine Estimated GFR POC Glucose Random Glucose Calcium Total Bilirubin AST ALT Alkaline Phosphatase Total Creatine Kinase Troponin I B-Natriuretic Peptide Total Protein Albumin Triglycerides Cholesterol LDL Cholesterol, Calc HDL Cholesterol Cholesterol/HDL Ratio - Imaging Impressions Chest X-Ray 10/14/17 19:10 CONCLUSION: Negative examination. Chest CTA 10/14/17 19:17 CONCLUSION: 1. No evidence of pulmonary embolism. 2. Markedly enlarged heart. 3. Posterior bibasilar atelectasis. 4. Hepatomegaly. Caprini VTE Risk Assessment Caprini VTE Risk Assessment: Moderate/High Risk (score >= 2) Caprini Risk Assessment Model: Point Value = 1 Point Value = 2 Point Value = 3 Point Value = 5 Age 41-60 Minor surgery BMI > 25 kg/m2 Swollen legs Varicose veins or History of unexplained or recurrent spontaneous Oral contraceptives or hormone replacement Sepsis (< 1 month) Serious lung disease, including pneumonia (< 1 month) Abnormal pulmonary function Acute myocardial infarction Congestive heart failure (< 1 month) History of inflammatory bowel disease Medical patient at bed rest Age 61-74 Arthroscopic surgery Major open surgery (> 45 min) Laparoscopic surgery (> 45 min) Malignancy Confined to bed (> 72 hours) Immobilizing plaster cast Central venous access Age >= 75 History of VTE Family history of VTE Factor V Leiden Prothrombin [id number] Lupus anticoagulant Anticardiolipin antibodies Elevated serum homocysteine Heparin-induced thrombocytopenia Other congenital or acquired thrombophilia Stroke (< 1 month) Elective arthroplasty Hip, pelvis, or leg fracture Acute spinal cord injury (< 1 month) Prophylaxis Regimen: Total Risk Factor Score Risk Level Prophylaxis Regimen 0-1 Low Early ambulation 2 Moderate Order ONE of the following: *Sequential Compression Device (SCD) *Heparin 5000 units SQ BID 3-4 Higher Order ONE of the following medications: *Heparin 5000 units SQ TID *Enoxaparin/Lovenox 40 mg SQ daily (WT < 150 kg, CrCl > 30 mL/min) *Enoxaparin/Lovenox 30 mg SQ daily (WT < 150 kg, CrCl > 10-29 mL/min) *Enoxaparin/Lovenox 30 mg SQ BID (WT < 150 kg, CrCl > 30 mL/min) AND/OR *Sequential Compression Device (SCD) 5 or more Highest Order ONE of the following medications: *Heparin 5000 units SQ TID (Preferred with Epidurals) *Enoxaparin/Lovenox 40 mg SQ daily (WT < 150 kg, CrCl > 30 mL/min) *Enoxaparin/Lovenox 30 mg SQ daily (WT < 150 kg, CrCl > 10-29 mL/min) *Enoxaparin/Lovenox 30 mg SQ BID (WT < 150 kg, CrCl > 30 mL/min) AND *Sequential Compression Device (SCD) Assessment and Plan - Assessment (1) Unstable angina Code(s): I20.0 - Unstable angina Status: Resolved - Plan Unstable angina with history of coronary artery disease status post multiple stenting recently 2. Chest x-ray without acute cardiopulmonary disease image interpreted by me. EKG tracings available with Q waves in the inferior leads. He ruled out for TN. Underwent cardiac catheterization with stenting of the PDA. Currently pain-free. Continue aspirin, Plavix, statin and Lopressor. Risk factor modifications Multiple medical conditions of diabetes mellitus, GERD, CVA and COPD. Continue outpatient medications as appropriate. Monitor fingersticks with sliding scale coverage DVT prophylaxis with SCD, early ambulation and antiplatelets Discussed Condition With: Patient and Discharge Planning: Discharge home in improved condition. He has significantly improved earlier than anticipated Diet as tolerated Activity as tolerated no strenuous activities See medication reconciliation form new medications Lopressor and statin Follow-up with PCP and cardiology
[2017-10-15] MEDS ORDERED: Metoprolol Tartrate 25 MG Tablet PO SCH (21:00)
--- NOTE | 2017-10-16 12:02 | ECG ---
Date Performed: 10/15/2017 Time Performed: 14:09:46 PTAGE: 66 years EKG: Sinus rhythm Leftward axis Inferior infarct - age undetermined Abnormal ECG PREVIOUS TRACING : 10/14/2017 18.50 Since the previous tracing, no significant change noted DOCTOR: Owen Hickman Interpretating Date/Time 10/16/2017 12:02:03
== END 2017-10-15 20:05 | disposition home or self-care (01) ==
LOC: PHED 18:49 → PHEDA 21:51 → HCIS 10-15 03:00
PROVIDERS: ADMIT Internal Medicine; ATTEND Internal Medicine